=== PATIENT | female | born 1935 | race Caucasian/White ===

== ENCOUNTER 2019-10-30 13:56 | Observation (INO) | payer MEDICARE ==
--- OUTSIDE RECORDS SUMMARY | 2019-10-30 14:14 | XMS REPORT | Summary of Care ---
:1935 Author Organization [facility] Address [address] [place] [address] Care Team Providers Name Role Phone Ayesha Barros MD Primary Care Provider Reason for Visit Reason Comments New Patient Encounter Details Date Type Department Care Team Description 09/29/2019 Office Visit [facility] Kathy Ramirez, PAD (peripheral [facility] MD FRENCH disease) (Primary Dx) Department of Surgery, [address] [place] [address] Division of Vascular Room [address] [facility] and [place], [place] Endovascular Services [id number] [facility] [phone] [place] [address] (Fax) [phone] Allergies Active Allergy Reactions Severity Noted Date Comments Erythromycin 09/20/2019 Penicillins 09/20/2019 documented as of this encounter (statuses as of 09/29/2019) Medications Medication Sig Dispensed Refills Start Date End Date Status Calcium Carbonate-Vitamin D Take by mouth 0 09/06/2007 Active 600-200 MG-UNIT Oral Tablet (CALCIUM 600+D) Vitamin D 2000 UNIT Oral Take by mouth 0 07/29/2011 Active Capsule clonazePAM 0.5 MG Oral Take by mouth 0 09/30/2014 Active Tablet (KLONOPIN) Diclofenac Sodium 1 % 0 08/18/2019 Active Transdermal Gel (VOLTAREN) Fluticasone Propionate 50 0 07/30/2017 Active MCG/ACT Nasal Suspension (FLONASE) Gabapentin 100 MG Oral Take by mouth 0 11/02/2017 Active Capsule (NEURONTIN) hydroCHLOROthiazide 25 MG Take by mouth 0 08/18/2019 Active Oral Tablet (HYDRODIURIL) Levothyroxine Sodium 75 MCG Take by mouth 0 04/18/2018 Active Oral Tablet (SYNTHROID, LEVOTHROID) Magnesium Oxide 250 MG Oral Take by mouth 0 03/04/2016 Active Tablet PARoxetine HCl ER 37.5 MG Take by mouth 0 07/06/2016 Active Oral Tablet Extended Release 24 Hour (PAXIL-CR) raNITIdine HCl 150 MG Oral 0 09/18/2013 Active Tablet (ZANTAC) Simvastatin 40 MG Oral Take by mouth 0 12/04/2014 Active Tablet (ZOCOR) Trospium Chloride 20 MG Take by mouth 0 Active Oral Tablet (SANCTURA) ASPIRIN 81 PO Take by mouth 0 12/20/2012 Active Aspirin 325 MG Oral Tablet Take 325 mg 0 Active by mouth daily documented as of this encounter (statuses as of 09/29/2019) Active Problems No known active problemsdocumented as of this encounter (statuses as of 2018) Social History Tobacco Use Types Packs/Day Years Used Date Never Assessed 0 Sex Assigned at Date Recorded Not on file Job Start Date Occupation Industry Not on file Not on file Not on file Travel History Travel Start Travel End No recent travel history available. documented as of this encounter Last Filed Vital Signs Vital Sign Reading Time Taken Comments Blood Pressure 150/78 09/29/2019 2:37 PM EST Pulse 92 09/29/2019 2:37 PM EST Temperature 36 09/29/2019 2:37 PM EST C (96.8 F) Respiratory Rate 18 09/29/2019 2:37 PM EST Oxygen Saturation 92% 09/29/2019 2:37 PM EST Inhaled Oxygen Concentration - - Weight 61.7 kg (136 lb) 09/29/2019 2:37 PM EST Height 160 cm (5' 3") 09/29/2019 2:37 PM EST Body Mass Index 24.09 09/29/2019 2:37 PM EST documented in this encounter Progress Notes Kathy Ramirez MD - 09/29/2019 2:15 PM EST Subjective: Patient ID: Neisha Molina is a 83 y.o. female with past medical history of Anxiety, Depression, GERD (gastroesophageal reflux disease), Localized edema, Osteoporosis, Hypercholesterolemia, HTN, PVD (peripheral vascular disease) C/o knee pain, trouble walking, using a cane. Pain in thighs too. Taking Tylenol. Her knees bother her and her ankles are swollen over lower leg and foot. She was told years ago thatshe has PAD and should walk. 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 In the AM, when she wakes up, her left heel feels numb. After she is up and moving around, it feelsbetter. She is unsteady and fell recently. She said when she gets up to walk, it is hard to get started and then gets better as she moves. She does not have rest pain. She does not claudicate because she doesn't walk much. ROS: fatigue, wears glasses, AYALA, anxiety,muscle pains, pain with walking, difficulty walking. Neversmoker. Chief Complaint: HPI Neisha has a past medical history of Anxiety, Depression, GERD ( gastroesophageal reflux disease), Localized edema, Osteoporosis, PVD ( peripheral vascular disease), and Thyroid disease. Neisha does not have a problem list on file. Neisha has a past surgical history that includes Colonoscopy. Her family history is not on file. Neisha has no history on file for tobacco, alcohol, and drug. Neisha has a current medication list which includes the following prescription(s) : aspirin, clonazepam, diclofenac sodium, fluticasone, gabapentin, hydrochlorothiazide, levothyroxine, paroxetine, ranitidine, simvastatin, vitamin d, aspirin, calcium carbonate-vitamin d, magnesium oxide, and trospium. Current Outpatient Medications on File Prior to Visit Medication Sig Dispense Refill Aspirin 325 MG Oral Tablet Take 325 mg by mouth daily clonazePAM 0.5 MG Oral Tablet (KLONOPIN) Take by mouth Diclofenac Sodium 1 % Transdermal Gel (VOLTAREN) Fluticasone Propionate 50 MCG/ACT Nasal Suspension (FLONASE) Gabapentin 100 MG Oral Capsule (NEURONTIN) Take by mouth hydroCHLOROthiazide 25 MG Oral Tablet (HYDRODIURIL) Take by mouth Levothyroxine Sodium 75 MCG Oral Tablet (SYNTHROID, LEVOTHROID) Take by mouth PARoxetine HCl ER 37.5 MG Oral Tablet Extended Release 24 Hour (PAXIL-CR ) Take by mouth raNITIdine HCl 150 MG Oral Tablet (ZANTAC) Simvastatin 40 MG Oral Tablet (ZOCOR) Take by mouth Vitamin D 2000 UNIT Oral Capsule Take by mouth ASPIRIN 81 PO Take by mouth Calcium Carbonate-Vitamin D 600-200 MG-UNIT Oral Tablet (CALCIUM 600+D) Take by mouth Magnesium Oxide 250 MG Oral Tablet Take by mouth Trospium Chloride 20 MG Oral Tablet (SANCTURA) Take by mouth No current facility-administered medications on file prior to visit. Neisha is allergic to erythromycin and penicillins. Review of Systems All other systems reviewed and are negative. Objective: Physical Exam Constitutional: She is oriented to person, place, and time. She appears well- developed and well-nourished. HENT: Head: Normocephalic and atraumatic. Eyes: Pupils are equal, round, and reactive to light. Neck: Normal range of motion. Neck supple. Cardiovascular: Normal rate. Femoral 2+ bilaterally No pulses distally DP, PT, peroneal on right monophasic PT biphasic, DP, peroneal monophasic Pulmonary/Chest: Effort normal. Abdominal: Soft. Musculoskeletal: Normal range of motion. General: Edema present. Neurological: She is alert and oriented to person, place, and time. Skin: Skin is warm and dry. Psychiatric: She has a normal mood and affect. Her behavior is normal. Judgment and thought content normal. Nursing note and vitals reviewed. Lab Review: 09/13/19 LUCIO [facility]: LUCIO Right 0.57 and Left 0.54 TBI Right 0.15; Left 0.27 Assessment: 1. PAD (peripheral artery disease) Plan: Her symptoms and limitations are more consistent with arthritis. She has Moderate to severe PAD Right > Left so her options are limited with respect to compression. She needs to elevtre her legs more and increase her activity. She had Physical Therapy and would benefit from more Physical Therapy. I can obtain repeat her LUCIO/ TBI in 6 months and see her back after that. Total time spent during this encounter including review of record and available studies, obtaining history and performing the physical exam with recommendations was 45 minutes. documented in this encounter Plan of Treatment Not on filedocumented as of this encounter Results Not on filedocumented in this encounter Visit Diagnoses Diagnosis PAD (peripheral artery disease) - Primary Peripheral vascular disease, unspecified documented in this encounter
--- OUTSIDE RECORDS SUMMARY | 2019-10-30 14:14 | XMS REPORT | Continuity of Care Document ---
:1935 External Reference #:[id number] Author Name JUDIE Paez Address [address] [place] [address] Care Team Providers Name Role Phone Ayesha Barros M.D. - Internal Care Team Information [facility] Problems Active Problems Provider Date Depressive disorder Anisha Nuno M.D. Onset: 05/26/2013 Peripheral vascular disease Ayesha Barros M.D. Onset: 12/20/2012 Peptic reflux disease Onset: 10/18/2006 Pure hypercholesterolemia Onset: 10/18/2006 Generalized anxiety disorder Ayesha Barros M.D. Onset: 10/18/2006 Hypothyroidism Onset: 10/18/2006 Allergic rhinitis due to pollen Onset: 10/18/2006 Urge incontinence of urine Francisco Clifton MD Onset: 04/12/2018 Atrophic vaginitis Francisco Clifton MD Onset: 04/12/2018 Nocturia Francisco Clifton MD Onset: 04/12/2018 Neurogenic bladder Francisco Clifton MD Onset: 04/12/2018 Bladder muscle dysfunction - overactive Francisco Clifton MD Onset: 2017 Nocturnal enuresis JUDIE Lees Onset: 11/22/2017 Mixed urinary incontinence JUDIE Lees Onset: 11/22/2017 Increased frequency of urination JUDIE Lees Onset: 11/22/2017 Social History Type Date Description Comments Sex Unknown Tobacco Use Reviewed: 03/04/18 Never Smoked Cigarettes Smoking Status Reviewed: 08/15/19 Never Smoked Cigarettes ETOH Use Rare Alcohol Use Allergies, Adverse Reactions, Alerts Active Allergies Reaction Severity Comments Date Erythromycin unknown reaction 03/03/2005 Penicillin unknown reaction 04/05/2018 Toviaz Urticaria, itching and hives 04/26/2018 Medications Active Medications SIG Qnty Indications Ordering Date Provider Gabapentin take 1 capsule by 90caps F41.1 Fiorella, 11/02/20 100mg Capsules mouth tid for Janay Hodge 17 anxiety Fluticasone Propionate 2 sprays in each 16units R09.82 Fiorella, 07/30/20 nostril daily Janay Hodge 17 50mcg/Act Suspension Hydrochlorothiazide 1 by mouth every 30tabs R60.0 Fiorella, 06/25/20 12.5mg other day for foot Janay Hodge 17 Tablets swelling Paroxetine HCL ER 1 by mouth every 30tabs F41.1 Fiorella, 07/06/20 37.5mg night at bedtime Janay Hodge 16 Tablets ER 24HR Simvastatin take 1 tablet by 30tabs E78.2 Fiorella, 12/04/19 40mg Tablets mouth at bedtime Janay Hodge 15 Clonazepam 1/2 to 1 tab by 60tabs F41.1 Fiorella, 09/30/20 0.5mg Tablets mouth twice a day as Janay Hodge 14 needed Cyanocobalamin inject 1ml 25units D51.9 Entiat, 07/27/20 1000mcg/ML intramuscularly Maryanne Adan Solution every month N.P. Levothyroxine Sodium take 1 tablet by 30tabs E03.9 Fiorella, 12/26/19 75mcg mouth every day Janay Hodge 14 Tablets Ranitidine HCL Take 1 Tablet By 60tabs K21.0 Fiorella, 09/18/20 150mg Tablets Mouth Two Times Janay Hodge 13 Daily Aspirin 1 po qd 780.4 Fiorella, 12/20/[address] Ayesha M.D. 13 Vitamin D 1 po qd E55.9 Fiorella, 07/29/20 2000Unit Tablets Janay Hodge 11 Calcium-Vitamin D 1 PO qd M85.9 Fiorella, 09/06/20 Janay Hodge 07 [id number] Tablets History Medications Doxycycline Hyclate 1 by mouth twice a 5caps Francisco Clifton 2018 - day x 3 days. 08/14/2019 100mg Capsules Next dose tonight or tomorrow Am Medications Administered in Office Medication SIG Qnty Indications Ordering Provider Date Botox 100 Units Francisco Clifton MD 07/27/2019 Injection Immunizations Description No Information Available Vital Signs Date Vital Result Comment 09/26/2019 2:16pm Height 64 inches 5'4" Weight 134.00 lb Weight 60.782 kg BMI (Body Mass Index) 23.0 kg/m2 BP Systolic 133 mmHg BP Diastolic 83 mmHg Heart Rate 78 /min Post Void Residual ml 43 Bladder Scanner 09/26/2019 2:12pm Height 64 inches 5'4" Weight 134.00 lb Weight 60.782 kg BMI (Body Mass Index) 23.0 kg/m2 Results Test Acquired Date Facility Test Result H/L Range Note 230 Ua Routine 08/15/2019 [facility]a Glucose Negative REF TO DR ADDRESS ON ORDER FOR (315)- - Ua Protein Negative Ua Nitrite Negative Ua Leuko Trace Ua Blood Negative Ua Color Not Entered Ua Ketones Negative Ua Clarity Not Entered Ua Specific [place] 1.015 1.003-1.030 Ua PH 6.5 5.0-7.5 Ua Bilirubin Negative Ua Urobilinogen 0.2 E.U./dL 0.0-1.0 230 Ua [facility]2019 [facility] Glucose Negative REF TO DR ADDRESS ON ORDER FOR (315)- - Ua Protein Negative Ua Nitrite Negative Ua Leuko Negative Ua Blood Negative Ua Color Not Entered Ua Ketones Negative Ua Clarity Not Entered Ua Specific [place] >=1.030 1.003-1.030 Ua PH 7.0 5.0-7.5 Ua Bilirubin Negative Ua Urobilinogen 0.2 E.U./dL 0.0-1.0 230 Ua [facility]a Glucose Negative REF TO DR ADDRESS ON ORDER FOR (315)- - Ua Protein Negative Ua Nitrite Negative Ua Leuko Negative Ua Blood Negative Ua Color Not Entered Ua Ketones Negative Ua Clarity Not Entered Ua Specific [place] 1.020 1.003-1.030 Ua PH 8.0 5.0-7.5 Ua Bilirubin Negative Ua Urobilinogen 0.2 E.U./dL 0.0-1.0 Procedures Date Code Description Status 09/26/2019 86340 Bladder Scan, Post Voiding Residual Urine Completed 08/15/2019 69257 Bladder Scan, Post Voiding Residual Urine Completed 08/15/2019 [id number] Colonoscopy Completed 07/27/2019 11330 Cystourethroscopy,/W Injects For Chemodenervation Of Completed The Bladder 07/07/2019 94701 Bladder Scan, Post Voiding Residual Urine Completed Medical Devices Description No Information Available Encounters Type Date Location Provider Dx Diagnosis Office Visit 09/26/2019 [facility]/ [facility] 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 Will continue with plan for Botox in December as prior.R35.1 NocturiaComments:Greatly improved on Botox. Still improved without trospium. Please see below.R33.8 Other retention of urineComments:Normal bladder volume by bladder scanner today. Improved from prior on trospium. Continue without trospium at present. Keep current appointment. All questions addressed to patient's satisfaction.AllFollow up: Keep current appointment. Dr. Murray is the supervising physician. Functional Status Description No Information Available Mental Status Description No Information Available Referrals Refer to Reason for Referral Status Appt Date Francisco Clifton M.D. Botox Created [facility] [address] [place] [phone]
--- NOTE | 2019-10-30 14:26 | ED ---
Lower Extremity - HPI Summary HPI Summary: This patient is a 83 year old F brought to [facility] by EMS accompanied by daughter with a chief complaint of inability to walk due to leg pain since this morning 10/30/19. Symptoms aggravated by nothing. Symptoms alleviated by nothing. Daughter reports increasing pain in legs until this morning when she could not walk. Daughter reports pt was supposed to see Dr. Daly for a potential knee replacement in 2 days but now both legs are in a lot of pain including pain from left thigh down to ankle. Daughter also reports slight confusion for 2-3 days reported by pt but in actuality for 2-3 years per daughter. Daughter reports pt fell backward 4 days ago but pt denies LOC. Daughter reports pt has had difficulty walking for past 2 months. Denies sob, trouble breathing, cough, denies weight gain but daughter reports a weight gain, fever, chills, erythema of eyes, sore throat, CP, abdominal pain, N/V, dysuria, hematuria, myalgia, edema, rash. Pt reports current dizziness. Fhx strokes. Daughter reports past dx of PAD and vascular doctor, Dr. Betts, in [place] who recommended exercise but pt does not wish to exercise. Pt reports a dog hit her left leg years ago. - History of Current Complaint Stated Complaint: LEG PAIN Time Seen by Provider: 10/30/19 14:08 Hx Obtained From: Patient, Family/Bearingizer - daughter Mechanism Of Injury: Fall From A Standing Position Onset/Duration: Still Present Timing: Constant Associated Signs And Symptoms: Positive: Dizziness, Other - confusion, difficulty walking; Denies sob, trouble breathing, cough, denies weight gain but daughter reports a weight gain, fever, chills, erythema of eyes, sore throat , CP, abdominal pain, N/V, dysuria, hematuria, myalgia, edema, rash.. Negative : Fever, Syncope Aggravating Factor(s): Nothing Alleviating Factor(s): Nothing - Allergies/Home Medications Allergies/Adverse Reactions: Allergies Allergy/AdvReac Type Severity Reaction Status Date / Time Penicillins Allergy Rash Verified 10/30/19 14:50 Home Medications: Home Medications Diclofenac 1% GEL (NF) [Voltaren 1% GEL (NF)] 1 applic TOPICAL QID 10/30/19 [ History Confirmed 10/30/19] Gabapentin CAP(*) [Neurontin 100 mg CAP(*)] 100 mg PO TID 10/30/19 [History Confirmed 10/30/19] Hydrochlorothiazide TAB* [Hydrodiuril TAB*] 12.5 mg PO DAILY 10/30/19 [History Confirmed 10/30/19] Hydrochlorothiazide TAB* [Hydrodiuril TAB*] 25 mg PO DAILY 10/30/19 [History Confirmed 10/30/19] Paroxetine CR (NF) [Paxil CR (NF)] 37.5 mg PO BEDTIME 10/30/19 [History Confirmed 10/30/19] Vit E Acet/Gly/Dimeth/Water [Cetaphil Moisturizing] 1 applic TOPICAL TID PRN [History Confirmed 10/30/19] PMH/Surg Hx/FS Hx/Imm Hx Endocrine/Hematology History: Reports: Hx Anticoagulant Therapy, Hx Thyroid Disease, Hx Anemia Denies: Hx Diabetes Cardiovascular History: Reports: Hx Angina, Hx Hypercholesterolemia, Hx Hypertension, Hx Peripheral Vascular Disease Denies: Hx Pacemaker/ICD Respiratory History: Reports: Hx Asthma GI History: Reports: Hx Gastroesophageal Reflux Disease, Other GI Disorders - constipation History: Denies: Hx Renal Disease Musculoskeletal History: Reports: Hx Arthritis - hips, Hx Back Problems Sensory History: Reports: Hx Cataracts - removal and lens implants placed Denies: Hx Hearing Aid Opthamlomology History: Reports: Hx Cataracts - removal and lens implants placed Psychiatric History: Reports: Hx Anxiety Denies: Hx Panic Disorder - Surgical History Surgery Procedure, Year, and Place: Cataract surgery with lens implants. D+C after miscarriage at age 34 Hx Anesthesia Reactions: No Infectious Disease History: Reports: Hx Tuberculosis - At age 25, neg cxr 09/19 Denies: Traveled Outside the [place] in Last 30 Days - Family History Known Family History: Positive: Hypertension, Other - strokes - Social History Alcohol Use: Rare Hx Substance Use: No Substance Use Type: Reports: None Hx Tobacco Use: No Smoking Status (MU): Never Smoked Tobacco Review of Systems Positive: Other - denies weight gain thought daughter says there was weight gain. Negative: Fever, Chills Negative: Erythema Negative: Sore Throat Negative: Chest Pain Positive: Other - denies trouble breathing. Negative: Shortness Of Breath, Cough Negative: Abdominal Pain, Vomiting, Nausea Negative: dysuria, hematuria Positive: Other - inability to walk, bilateral leg pain. Negative: Myalgia, Edema Negative: Rash Neurological: Other - dizziness, confusion All Other Systems Reviewed And Are Negative: Yes Physical Exam - Summary Physical Exam Summary: Constitutional: Well-developed, Well-nourished, Alert. (-) Distressed Skin: Warm, Dry HENT: Normocephalic; Atraumatic Eyes: Conjunctiva normal Neck: Musculoskeletal ROM normal neck. (-) JVD, (-) Stridor, (-) Tracheal deviation Cardio: Rhythm regular, rate normal, Heart sounds normal; Intact distal pulses; The pedal pulses are 2+ and symmetric. Radial pulses are 2+ and symmetric. (-) Murmur Pulmonary/Chest wall: Effort normal. (-) Respiratory distress, (-) Wheezes, (-) Rales Abd: Soft, (-) tenderness, (-) Distension, (-) Guarding, (-) Rebound Musculoskeletal:trace edema bilateral lower extremity, pedal pulses not palpable , feet somewhat cold, capillary refill is less than 2 seconds, redness overlying left ankle extending fci up the calf Lymph: (-) Cervical adenopathy Neuro: Alert, Oriented x3 Psych: Mood and affect Normal Triage Information Reviewed: Yes Vital Signs Reviewed: Yes Procedures - Sedation Patient Received Moderate/Deep Sedation with Procedure: No Diagnostics - Laboratory Result Diagrams: 10/30/19 14:55 10/30/19 14:55 Lab Statement: Any lab studies that have been ordered have been reviewed, and results considered in the medical decision making process. - Radiology Chest X-Ray Radiology Interpretation Completed By: Radiologist Summary of Radiographic Findings: Per radiologist,. 1. Cephalization of the pulmonary vascular markings (sometimes seen with early mild. pulmonary edema). 2. No focal airspace opacification. ED physician has reviewed this imaging report. - CT Brain CT CT Interpretation Completed By: Radiologist Summary of CT Findings: Per radiologist,. 1. No acute intracranial abnormality. 2. Mild chronic small vessel ischemic disease is likely. 3. Mild cerebral volume loss. ED physician has reviewed this imaging report. - Ultrasound Venous Doppler Study Ultrasound Interpretation Completed By: Radiologist Summary of Ultrasound Findings: Per radiologist,. 1. NO LEFT LOWER EXTREMITY DEEP VEIN THROMBOSIS. 2. LOPEZ'S CYST. ED physician has reviewed this imaging report. - EKG 1436 Cardiac Rate: NL - 72 BPM Summary of EKG Findings: EKG taken at 1436 reveals sinus rhythm at 72 BPM, t- wave flattening V6, non-STEMI. Re-Evaluation - Re-Evaluation First Eval Re-Evaluation Time: 17:50 Comment: Family says that today cannot walk and it is not painful. Lower Extremity Course/Dx - Course Assessment/Plan: This patient is a 83 year old F brought to [facility] by EMS accompanied by daughter with a chief complaint of inability to walk due to leg pain since this morning 10/30/19. Daughter reports increasing pain in legs until this morning when she could not walk. Daughter also reports slight confusion for 2-3 days reported by pt but in actuality for 2-3 years per daughter. Daughter reports pt fell backward 4 days ago but pt denies LOC. Daughter reports pt has had difficulty walking for past 2 months. Denies sob, trouble breathing, cough, denies weight gain but daughter reports a weight gain , fever, chills, erythema of eyes, sore throat, CP, abdominal pain, N/V, dysuria , hematuria, myalgia, edema, rash. Pt reports current dizziness. Physical Exam Findings reveal no abnormalities except for trace edema bilateral lower extremity, pedal pulses not palpable, feet somewhat cold, capillary refill is less than 2 seconds, redness overlying left ankle extending fci up the calf, . EKG taken at 1436 reveals sinus rhythm at 72 BPM, t-wave flattening V6, non- STEMI. CXR reveals 1. Cephalization of the pulmonary vascular markings ( sometimes seen with early mild. pulmonary edema). 2. No focal airspace opacification. Brain CT reveals 1. No acute intracranial abnormality. 2. Mild chronic small vessel ischemic disease is likely. 3. Mild cerebral volume loss. Venous Doppler Study reveals 1. NO LEFT LOWER EXTREMITY DEEP VEIN THROMBOSIS. 2. LOPEZ'S CYST. ED physician has reviewed this radiology report and agrees. Test results with no significant abnormalities expect for Potassium 3.2 L, BUN/Creatinine Ratio 23.9 H, Glucose 124 H. We discussed patient care with Dr. Norris who accepts pt for admission. Patient will be admitted with dx failure to thrive, weakness, and uncontrolled hypertension. The patient is agreeable with this plan. - Diagnoses Provider Diagnoses: Failure to thrive, Weakness, Uncontrolled hypertension - Physician Notifications Discussed Care Of Patient With: Margoth Norris - hospitalist Time Discussed With Above Provider: 17:56 Instructed by Provider To: Admit As Inpatient Discharge ED - Sign-Out/Discharge Documenting (check all that apply): Patient Departure - admit - Discharge Plan Disposition: ADMITTED TO [facility] Referrals: Ayesha Murphy MD [Primary Care Provider] - - Attestation Statements Document Initiated by Scribe: Yes Documenting Scribe: Ingrid Kendrick Provider For Whom Scribe is Documenting (Include Credential): Dr. Olman Duggan MD Scribe Attestation: Ingrid De La Cruz, scribed for Dr. Olman Duggan MD on 10/30/19 at 1758. Status of Scribe Document: Ready
[2019-10-30 15:20] LABS: ABS Basophils 0.1 10^3/ul (0-0.2); ABS Eosinophils 0.3 10^3/ul (0-0.6); ABS Lymphocytes 1.3 10^3/ul (1.0-4.8); ABS Monocytes 0.4 10^3/ul (0-0.8); ABS Neutrophils 3.9 10^3/ul (1.5-7.7); Eosinophil % 5.1 %; Hematocrit 40 % (35-47); Hemoglobin 13.4 g/dL (12.0-16.0); Lymphocyte % 21.2 %; Mean Corpuscular HGB Conc 34 g/dL (31-36); Mean Corpuscular Hemoglobin 30 pg (27-31); Mean Corpuscular Volume 89 fL (80-97); Nucleated Red Blood Cells % 0.1; Platelet Count 259 10^3/uL (150-450); Red Blood Count 4.46 10^6 /uL (3.70-4.87); Red Cell Distribution Width 14 % (10-15); White Blood Count 5.9 10^3/uL (3.5-10.8)
[2019-10-30 15:39] LABS: Activated Partial Thrombo Time 34.7 seconds (26.0-38.0); INR 0.95 (0.82-1.09)
[2019-10-30 15:54] LABS: Albumin 3.5 g/dL (3.2-5.2); Albumin/Globulin Ratio 1.1 (1-3); BUN/Creatinine Ratio 23.9 (8-20); Calcium 9.3 mg/dL (8.6-10.3); EGFR African American 94.9 (>60); EGFR Non-African American 78.4 (>60); Globulin 3.2 g/dL (2-4); Potassium 3.2 mmol/L (3.5-5.0); Total Bilirubin 0.4 mg/dL (0.2-1.0); Total Protein 6.7 g/dL (6.4-8.9)
[2019-10-30] MEDS ORDERED: NS 0.9% 1000 ML** 1,000 ML IV ONE (17:59)
[2019-10-30 18:22] LABS: Urine Appearance Clear; Urine Bilirubin Negative (Negative); Urine Blood Negative (Negative); Urine Color Straw; Urine Glucose Negative (Negative); Urine Ketones Negative (Negative); Urine Nitrite Negative (Negative); Urine Protein Negative (Negative); Urine Specific Gravity 1.009 (1.010-1.030); Urine Urobilinogen Negative (Negative)
[2019-10-30] MEDS ORDERED: Ketorolac INJ* 15 MG/ML 1 ML VIAL IV PUSH PRN (19:33)
[2019-10-30] MEDS ORDERED: Potassium Chlor TAB* 20 MEQ TAB.ER PO ONE (19:45)
[2019-10-30] MEDS ORDERED: traMADol TAB* 50 MG PO PRN (19:46)
[2019-10-30] MEDS ORDERED: Melatonin 3 MG TAB PO PRN (20:02)
[2019-10-30] MEDS ORDERED: Acetaminophen TAB* 325 MG PO PRN (20:02)
[2019-10-30] MEDS ORDERED: Ondansetron INJ* 2 MG/ML VIAL IV PRN (20:02)
[2019-10-30] MEDS ORDERED: PAROXETINE 12.5 MG PO SCH (21:00)
[2019-10-30] MEDS ORDERED: Cholecalciferol TAB* 1000 UNITS PO SCH (21:00)
[2019-10-30] MEDS ORDERED: Atorvastatin* 20 MG TAB PO SCH (21:00)
[2019-10-30] MEDS: Gabapentin CAP(*) 100 MG PO SCH (22:57)
[2019-10-30] MEDS: Docusate CAP* 100 MG PO SCH (22:58)
[2019-10-30] MEDS ORDERED: Enoxaparin(*) 40 MG/0.4 ML SYR SUBCUT SCH (23:00)
--- NOTE | 2019-10-30 23:12 | HP ---
AMENDED REPORT NOW INCLUDES DESIGNATED COSIGNER CC: Dr. Barros * HISTORY AND PHYSICAL: DATE OF ADMISSION: 10/30/19 PRIMARY CARE PHYSICIAN: Dr. Barros. PROVIDER: Chelly Steiner NP ATTENDING PHYSICIAN: Dr. Norris.* (DICTATED BY CHELLY STEINER NP) CHIEF COMPLAINT: Left leg pain. HISTORY OF PRESENT ILLNESS: This is an 83-year-old female with past medical history significant for cognitive impairment, thyroid disease, and arthritis, who arrived to the emergency room on 10/30/19 for reports of left knee pain and inability to walk. She stated that she has been having ongoing pain in bilateral knees for 1 year. She had an appointment scheduled with Dr. Daly in 2 days to discuss the possibility of bilateral knee replacements due to pain having progressed. However, the pain became much worse this morning, which contributed to her inability to walk. She reports the pain has been behind her left knee and it is sharp and burning and achy, stating that it is constant. It is worse with movement, better with rest. In the emergency room, labs were drawn. EKG done. Chest x-ray, brain CT, and venous Doppler performed, which showed that she had no DVT, but a Denton cyst behind the left knee measuring 3.6 x 1.2 x 2.5 cm. The patient would grimace while moving her leg in the bed. She stated that her pain was 6/10 to behind the left knee. The concern is that the patient lives by herself, though her daughter lives behind her and comes over frequently to help, but neither of them were able to manage her inability to walk at home. PAST MEDICAL HISTORY: Significant for cognitive impairment, thyroid disease, vitamin B12, anemia, angina, anxiety, tuberculosis at the age of 25, arthritis, back problems, hypercholesterolemia, hypertension, GERD, peripheral arterial disease, constipation, asthma, and cataracts. PAST SURGICAL HISTORY: Bilateral cataract repair and D and C. HOME MEDICATIONS: 1. Hydrochlorothiazide 25 mg p.o. daily. 2. Simvastatin 40 mg p.o. at bedtime. 3. Paroxetine 37.5 mg p.o. at bedtime. 4. Levothyroxine 75 mcg p.o. daily. 5. Gabapentin 100 mg p.o. t.i.d. 6. Diclofenac 1% gel 1 application topically 4 times a day. 7. Cholecalciferol 3000 units p.o. at bedtime. 8. Cetaphil moisturizing cream topically t.i.d. p.r.n. ALLERGIES: PENICILLIN. FAMILY HISTORY: Significant for CVA and hypertension. SOCIAL HISTORY: Denies any ETOH, tobacco, or recreational substance use. She is retired. As stated, lives at home alone, though her daughter lives behind her and helps frequently. REVIEW OF SYSTEMS: An 11-point system review was performed, which was positive for intermittent numbness and tingling in her bilateral great toes and positive for left knee and heel pain and left leg weakness. Negative for chest pain, shortness of breath, abdominal pain, nausea, vomiting, issues moving her bowel or blader. PHYSICAL EXAMINATION GENERAL: This is a well-developed woman seeing resting in the bed, in no acute distress. VITAL SIGNS: Temperature 98.2, 87 pulse, 15 respirations, 99% oxygen on room air, 126/77 blood pressure. HEENT: Eyes: Conjunctivae pink and moist. PERRLA. EOMs intact. ENT: Mucous membranes are moist. Oropharynx clear. NECK: Supple. RESPIRATORY: Lung sounds clear throughout bilaterally on room air. No accessory muscle use noted. CARDIAC: S1, S2. Heart rate regular. No murmurs, gallops, or rubs appreciated. ABDOMEN: Soft, nontender, nondistended with positive bowel sounds x4. MUSCULOSKELETAL: No clubbing or cyanosis of the digits. Tenderness behind the left knee with trace swelling. NEUROLOGICAL: Moves all extremities. Sensation intact to light touch. No focal deficits appreciated. PSYCH: Alert and oriented x3. Thought content organized. SKIN: Intact. Left heel deeply red, nonblanching and boggy. PERTINENT LAB DATA: Potassium 3.2, magnesium 2.0, BUN creatinine ratio 23.9, glucose 124. DIAGNOSTIC STUDIES: Brain CT showed no acute intracranial abnormality, mild chronic small vessel ischemic disease likely and mild cerebral volume loss. Venous Doppler study was negative for DVT, showed Denton cyst measuring 3.6 x 1.2 x 2.5 cm. EKG showed sinus rhythm. Chest x-ray showed cephalization of the pulmonary vascular markings (sometimes seen with early mild pulmonary edema) and no focal airspace opacification. ASSESSMENT AND PLAN: My impression is that this is an 83-year-old female with past medical history significant for cognitive impairment, thyroid disease, vitamin B12, anemia, who was admitted on 10/30/19 for left knee pain secondary to Denton cyst and inability to walk. 1. Left knee Denton cyst. Dr. Mcnally had been contacted with regards to possibility of steroid injection in the left knee for pain control stated that because patient has an established appointment with Dr. Daly, to see if we are able to mobilize the patient using a walker and other means of pain control such as NSAIDs in order for her to be able to make to that appointment. With the understanding that the patient is normally on aspirin, kidney functions were okay, so, tentatively ordered Toradol. We will recheck BMP tomorrow morning. We will also have tramadol available for her pain control. Physical Therapy ordered. 2. Hypokalemia. Level upon admission was 3.2. Magnesium was 2.0. Ordered 40 mEq of p.o. potassium. We will recheck in the a.m. 3. Depression and anxiety. Under control at this time. Continue paroxetine and gabapentin. Daughter and patient were concerned about her ability to sleep in a new environment tonight. Ordered melatonin. 4. Hypothyroidism. Continue levothyroxine. 5. Hypertension. Upon admission, the blood pressures were elevated 180/73 as high as 209/81. It is possible that this is a response to pain as blood pressures have now come down to 126/77. We will continue hydrochlorothiazide; however, we will consider the need to possibly titrate medications based off of her blood pressure trends over this admission. 6. Hyperlipidemia. Continue the atorvastatin and aspirin. 7. Gastroesophageal reflux disease. The patient had been taking ranitidine prior to it being recalled, has been having weekly bouts of indigestion. Ordered famotidine. 8. DVT prophylaxis. Ordered Lovenox. 9. Code status is full code. TIME SPENT: Time spent on the patient is about 60 minutes with half of this spent [id number]. Case was reviewed by my attending and they agreed with the plan of care. CHELLY STEINER, MAINTENANCE MGR [id number]/[facility] #: [id number] SAMUEL
[2019-10-31] MEDS ORDERED: Levothyroxine TAB* 75 MCG TAB PO SCH (06:00)
[2019-10-31 06:27] LABS: ABS Basophils 0.1 10^3/ul (0-0.2); ABS Eosinophils 0.4 10^3/ul (0-0.6); ABS Lymphocytes 2.4 10^3/ul (1.0-4.8); ABS Monocytes 0.6 10^3/ul (0-0.8); ABS Neutrophils 3.7 10^3/ul (1.5-7.7); Eosinophil % 5.3 %; Hematocrit 34 % (35-47); Hemoglobin 11.2 g/dL (12.0-16.0); Mean Corpuscular HGB Conc 33 g/dL (31-36); Mean Corpuscular Hemoglobin 30 pg (27-31); Mean Corpuscular Volume 89 fL (80-97); Mean Platelet Volume 8.5 fL (7.4-10.4); Nucleated Red Blood Cells % 0.1; Platelet Count 214 10^3/uL (150-450); Red Blood Count 3.77 10^6 /uL (3.70-4.87); Red Cell Distribution Width 14 % (10-15); White Blood Count 7.1 10^3/uL (3.5-10.8)
[2019-10-31 07:01] LABS: BUN/Creatinine Ratio 22.9 (8-20); Calcium 8.7 mg/dL (8.6-10.3); EGFR African American 96.5 (>60); EGFR Non-African American 79.7 (>60); Potassium 3.7 mmol/L (3.5-5.0)
[2019-10-31] MEDS: Gabapentin CAP(*) 100 MG PO SCH ×2 (08:59→14:05)
[2019-10-31] MEDS: Docusate CAP* 100 MG PO SCH (08:59)
[2019-10-31] MEDS ORDERED: Hydrochlorothiazide TAB* 25 MG PO SCH (09:00)
[2019-10-31] MEDS ORDERED: Aspirin EC TAB* 325 MG PO SCH (09:00)
[2019-10-31] MEDS ORDERED: Aspirin EC TAB* 81 MG TAB.EC PO SCH (09:00)
[2019-10-31] MEDS ORDERED: Famotidine TAB* 20 MG PO SCH (09:00)
[2019-10-31 11:23] VITALS: BP 147/46
[2019-10-31] MEDS ORDERED: PAROXETINE 37.5 MG PO SCH (21:00)
--- NOTE | 2019-11-01 00:18 | DS ---
CC: Dr. Barros * DISCHARGE SUMMARY: DATE OF ADMISSION: 10/30/19 DATE OF DISCHARGE: 10/31/19 PROVIDER: Chelly Steiner NP. ATTENDING PHYSICIAN: Dr. Vaz.* (DICTATED BY CHELLY STEINER NP) PRIMARY CARE PHYSICIAN: Dr. Barros. PRIMARY DIAGNOSIS: Left knee Denton cyst. PROCEDURES: None. STUDIES: Brain CT scan showed no acute intracranial abnormalities, mild chronic small vessel ischemic disease likely and mild cerebral volume loss. Venous Doppler study showed no left lower extremity deep vein thrombosis. Noted a 3.6 x 1.2 x 2.5 cm fluid collection within the popliteal fossa, noted to be Denton's cyst. Chest x- ray showed cephalization of the pulmonary vascular markings, sometimes seen with early mild pulmonary edema and no focal airspace opacification. EKG showed sinus rhythm. PERTINENT LAB DATA: Hemoglobin 11.2, hematocrit 34, BUN and creatinine ratio 22.9, glucose 119. Urine was negative. HISTORY OF PRESENT ILLNESS/HOSPITAL COURSE: This is an 83-year-old female with a past medical history significant for cognitive impairment, thyroid disease, and arthritis, who was admitted on 10/30/19, for left knee pain and inability to walk. She had been having ongoing bilateral knee pain for a year, was scheduled to see Dr. Daly tomorrow in the office for talk of potential knee replacement, though woke up in the morning yesterday with sharp burning, achy knee pain and was unable to bear weight on it. Brain CT was performed, which was negative for any remarkable findings. Labs drawn in the emergency room revealed potassium level of 3.2, which was corrected with oral potassium. The level increased the next day to 3.7. During her admission, she received evaluation from physical therapy and pain was well controlled with Tylenol. She was able to get up today with assistance of a walker and was able to ambulate to the bathroom and back with minimal discomfort. The patient was deemed ready to be discharged home and to follow up with Dr. Daly at her pre- established appointment for cortisone injection. When I assessed her, she was sitting up in the chair in no discomfort, in good spirits and stated she felt much better than yesterday. REVIEW OF SYSTEMS: An 11-point system review was performed, which was positive for mild right knee pain with weightbearing, otherwise negative for chest pain, shortness of breath, abdominal pain, nausea, vomiting, or issues moving her bowel or bladder. PHYSICAL EXAMINATION: Vital Signs: Temperature 97.7, 65 pulse, 20 resps, 100% oxygen on room, 147/46 blood pressure. General: This is a well-developed older woman seen sitting up in the chair. No acute distress. Eyes: Conjunctivae pink and moist. PERRLA. EOMs intact. ENT: Mucous membranes moist. Oropharynx clear. Neck is supple. Cardiac: S1, S2 present. Heart rate regular. No murmurs, gallops, or rubs appreciated. Respiratory: Lung sounds clear throughout bilaterally on room air. No accessory muscle use noted. Abdomen is soft, nontender. Positive bowel sounds x4. Musculoskeletal : No clubbing or cyanosis of the digits. Mild edema to posterior left knee that was mildly tender to palpation. 2+ positive pedal pulses. Cap refill less than 3 seconds. Neurological: Sensation intact to light touch. No focal deficits was appreciated. Psych: Alert and oriented x3. Thought content organized. DISCHARGE PLAN: Activity is as tolerated while using a walker. Diet is regular. The patient is to return to the hospital should she become unable to walk again or her pain becomes more severe, or develops increasing numbness or tingling in her left lower extremity. PLAN FOR EACH CONDITION: 1. For Denton cyst to the left knee, to use a walker with ambulation. May use 975 of Tylenol 3 times a day. Prescribed for 10 tabs of tramadol. Did check her previous prescription histories on the prescription monitoring program with reference number of [id number] and noted previous prescriptions for clonazepam though no pain medication. She is to keep her appointment with Dr. Daly tomorrow and to discuss the possibility of getting a cortisone shot for pain control. Also with possibility of future knee replacement as there is arthritis in the joint. 2. Hypertension. The patient is to continue her hydrochlorothiazide 25 mg. blood control in the hospital has been slightly labile from the 120s up into as high as 160. Recommend that she follow up with her primary care physician within a week to continue monitoring of that. 3. Hyperlipidemia. Continue simvastatin. 4. Anxiety. Continue paroxetine and gabapentin. 5. Hypothyroidism. Continue levothyroxine. 6. GERD. Continue famotidine. 7. Risks for coronary artery disease. Continue aspirin at 81 mg, which I decreased from her original 325 mg that she was taking as there is no indication for that high of a dosage for prophylaxis. CONTINUED MEDICATIONS UPON DISCHARGE: 1. Acetaminophen 650 mg p.o. q.4 hours p.r.n. 2. Aspirin 81 mg p.o. q.day. 3. Vitamin D 3000 units p.o. q.bedtime. 4. Diclofenac 1% gel 1 application topically 4 times a day. 5. Famotidine 20 mg p.o. daily. 6. Gabapentin 100 mg p.o. t.i.d. 7. Hydrochlorothiazide 25 mg p.o. daily. 8. Levothyroxine 75 mcg p.o. daily. 9. Paroxetine 37.5 mg p.o. at bedtime. 10. Simvastatin 40 mg p.o. at bedtime. 11. Tramadol 25 mg p.o. q.6 hours p.r.n. for a total of 10 tabs. 12. Cetaphil moisturizing lotion 1 application topically t.i.d. CONDITION UPON DISCHARGE: Stable. DISPOSITION: To home. TIME SPENT: Time spent on the patient was about 40 minutes with half of that spent [id number]. CHELLY STEINER, FUNERAL DIRECTOR [id number]/[facility] [place] #: [id number] MTDD
== END 2019-10-31 16:00 | disposition home or self-care (01) ==
LOC: ED 13:56 → MED 20:02
PROVIDERS: ADMIT Nurse Practitioner Adult Health; ATTEND Internal Medicine
DX: M71.22 Synovial cyst of popliteal space [Baker], left knee (principal); R42 Dizziness and giddiness; R53.83 Other fatigue; I10 Essential (primary) hypertension; E78.5 Hyperlipidemia, unspecified; F41.9 Anxiety disorder, unspecified; K21.9 Gastro-esophageal reflux disease without esophagitis; E03.9 Hypothyroidism, unspecified; Z79.82 Long term (current) use of aspirin; Z79.899 Other long term (current) drug therapy; Z79.01 Long term (current) use of anticoagulants; R94.31 Abnormal electrocardiogram [ECG] [EKG]; M79.606 Pain in leg, unspecified; E78.00 Pure hypercholesterolemia, unspecified; R60.0 Localized edema
CPT/HCPCS: 36415; 70450; 71045; 80048; 80053; 81003; 83605; 83735; 83880; 84484; 85025; 85610; 85730; 87040; 93005; 96372; 99283; A9270-GY; G0378; G8978-GP-CJ; G8979-GP-CI; J1650

== ENCOUNTER 2019-12-03 15:40 | Emergency (ER) | payer MEDICARE ==
--- OUTSIDE RECORDS SUMMARY | 2019-12-03 15:48 | XMS REPORT | Continuity of Care Document ---
:1935 External Reference #:[id number] Author Name Ayesha Barros MD Address [address] [place] [address] Problems Active Problems Provider Date Peptic reflux disease Onset: 10/18/2006 Pure hypercholesterolemia Onset: 10/18/2006 Generalized anxiety disorder Ayesha Barros MD Onset: 10/18/2006 Hypothyroidism Onset: 10/18/2006 Allergic rhinitis due to pollen Onset: 10/18/2006 Peripheral vascular disease Ayesha Barros MD Onset: 12/20/2012 Note: lower extremity Depressive disorder Anisha Nuno MD Onset: 05/26/2013 Social History Type Date Description Comments Sex Unknown Tobacco Use Start: Unknown Never Smoked Cigarettes Tobacco Use Start: Unknown Patient has never smoked Smoking Status Reviewed: 11/24/19 Patient has never smoked Allergies, Adverse Reactions, Alerts Active Allergies Reaction Severity Comments Date PCN 03/03/2005 Erythromycin 03/03/2005 Medications Active Medications SIG Qnty Indications Ordering Date Provider Aspirin Ec 1 by mouth I73.89 [facility], 11/24/[address] every day Ayesha Michael MD Mirtazapine take 1 tablet 30tabs F32.9 Fiorella, 11/24/2019 7.5mg Tablets by mouth every Ayesha Michael MD night at bedtime Hydrochlorothiazide 1 by mouth 90tabs R60.0 Fiorella, 08/18/2019 25mg Tablets every day Ayesha Michael MD Diclofenac Sodium apply 1 gram 100gm M17.0 Fiorella, 08/18/2019 1% Gel per joint four Ayesha Michael MD times a day as needed for pain MDD 4g/d Levothyroxine Sodium 1 by mouth 90tabs E03.9 Fiorella, 04/18/2018 75mcg every day Ayesha Michael MD Tablets Gabapentin take 1 capsule 90caps F41.1 Fiorella, 11/02/2017 100mg Capsules by mouth three Ayesha Michael MD times a day as needed for anxiety Fluticasone Propionate 2 sprays in 16units R09.82 [facility], 07/30/2017 50mcg/Act each nostril Ayesha Michael MD Suspension daily Paroxetine HCL ER Take 1 Tablet 30tabs F41.1 [facility], 07/06/2016 37.5mg Tablets By Mouth Every Ayesha Michael MD ER 24HR Day AT Bedtime Magnesium Oxide 1 po qhs [place], 03/04/2016 250mg Tablets Ayesha Michael MD Simvastatin take 1 tablet 30tabs E78.2 [place], 12/04/2014 40mg Tablets by mouth at Ayesha Michael MD bedtime Clonazepam take 1/2 to 1 60tabs F41.1 Maria Victoria Tucker 09/30/2014 0.5mg Tablets tablet by MATIAS Gibson MS PATROL LADY mouth two times daily as needed maximum daily dose of 2 per day Ranitidine HCL Take 1 Tablet 60tabs K21.0 [place], 09/18/2013 150mg Tablets By Mouth One Ayesha Michael MD Time Daily Vitamin D 1 po qd E55.9 [place], 07/29/2011 2000Unit Capsules Ayesha Michael MD Calcium 600+D 1 PO qd M85.9 [place], 09/06/2007 Tablets Ayesha Michael MD Medications Administered in Office Medication SIG Qnty Indications Ordering Provider Date B-12 Injection Ayesha Barros MD 11/24/2019 Injection B-12 Injection Ayesha Barros MD 08/18/2019 Injection B-12 Injection Nurses Schedule Nydia 05/24/2019 Injection B-12 Injection Ayesha Barros MD 01/16/2019 Injection B-12 Injection Maria Victoria Tucker RN MS 11/03/2018 Injection PATROL LADY B-12 Injection Nurses Schedule Nydia 09/13/2018 Injection B-12 Injection Nurses Schedule Nydia 07/22/2018 Injection B-12 Injection Nurses Schedule Nydia 06/07/2018 Injection B-12 Injection Nurses Schedule Nydia 04/08/2018 Injection B-12 Injection Ayesha Barros MD 02/01/2018 Injection B-12 Injection Nurses Schedule Nydia 12/07/2017 Injection B-12 Injection Nurses Schedule Nydia 10/11/2017 Injection B-12 Injection Ayesha Barros MD 07/30/2017 Injection B-12 Injection Ayesha Barros MD 06/25/2017 Injection B-12 Injection Nurses Schedule Nydia 05/14/2017 Injection B-12 Injection Nurses Schedule Nydia 04/07/2017 Injection B-12 Injection Nurses Schedule Nydia 03/04/2017 Injection B-12 Injection Nurses Schedule Nydia 01/22/2017 Injection B-12 Injection Ayesha Barros MD 11/17/2016 Injection B-12 Injection Nurses Schedule Nydia 09/22/2016 Injection B-12 Injection Ayesha Barros MD 08/17/2016 Injection B-12 Injection Nurses Schedule Nydia 05/14/2016 Injection B-12 Injection Ayesha Barros MD 04/01/2016 Injection B-12 Injection Nurses Schedule Nydia 02/12/2016 Injection B-12 Injection Nurses Schedule Nydia 12/16/2015 Injection B-Noah Injection Ayesha Barros MD 08/09/2015 Injection B-12 Injection Nurses Schedule Nydia 06/28/2015 Injection B-12 Injection Nurses Schedule Nydia 05/09/2015 Injection B-12 Injection Ayesha Barros MD 03/04/2015 Injection B-12 Injection Nurses Schedule Nydia 01/11/2015 Injection B-12 Injection Ayesha Barros MD 12/04/2014 Injection B-12 Injection Nurses Schedule Nydia 10/26/2014 Injection B-12 Injection Nurses Schedule Nydia 09/21/2014 Injection B-12 Injection Nurses Schedule Nydia 08/07/2014 Injection B-12 Injection Nurses Schedule Nydia 06/25/2014 Injection B-12 Injection Nurses Schedule Nydia 05/23/2014 Injection B-12 Injection Nurses Schedule Nydia 04/20/2014 Injection B-12 Injection Nurses Schedule Nydia 03/16/2014 Injection B-12 Injection Nurses Schedule Nydia 02/12/2014 Injection B-12 Injection Ayesha Barros MD 01/11/2014 Injection B-12 Injection Nurses Schedule Nydia 12/07/2013 Injection B-12 Injection Nurses Schedule Nydia 11/03/2013 Injection B-12 Injection Nurses Schedule Nydia 10/02/2013 Injection B-12 Injection Nurses Schedule Nydia 08/30/2013 Injection B-12 Injection Nurses Schedule Nydia 07/25/2013 Injection B-12 Injection Nurses Schedule Nydia 06/26/2013 Injection B-12 Injection Nurses Schedule Nydia 05/24/2013 Injection B-12 Injection Nurses Schedule Nydia 04/24/2013 Injection B-12 Injection Nurses Schedule Nydia 03/22/2013 Injection B-12 Injection Nurses Schedule Nydia 02/20/2013 Injection B-12 Injection Nurses Schedule Nydia 01/23/2013 Injection B-12 Injection Nurses Schedule Nydia 12/26/2012 Injection B-12 Injection Nurses Schedule Nydia 10/20/2012 Injection B-12 Injection Nurses Schedule Nydia 09/19/2012 Injection B-12 Injection Ayesha Barros MD 08/19/2012 Injection B-12 Injection Nurses Schedule Nydia 07/20/2012 Injection B-12 Injection Nurses Schedule Nydia 06/17/2012 Injection B-12 Injection Nurses Schedule Nydia 05/16/2012 Injection B-12 Injection Nurses Schedule Nydia 04/15/2012 Injection B-12 Injection Nurses Schedule Nydia 03/15/2012 Injection B-12 Injection Nurses Schedule Nydia 02/05/2012 Injection B-12 Injection Nurses Schedule Nydia 01/07/2012 Injection B-12 Injection Nurses Schedule Nydia 11/30/2011 Injection B-12 Injection Nurses Schedule Nydia 10/28/2011 Injection B-12 Injection Nurses Schedule Nydia 09/28/2011 Injection B-12 Injection Nurses Schedule Nydia 08/28/2011 Injection B-12 Injection Ayesha Barros MD 07/29/2011 Injection B-12 Injection Nurses Schedule Nydia 06/26/2011 Injection B-12 Injection Nurses Schedule Nydia 05/25/2011 Injection B-12 Injection Ayesha Barros MD 04/24/2011 Injection B-12 Injection Nurses Schedule Nydia 04/24/2011 Injection B-12 Injection Nurses Schedule Nydia 03/24/2011 Injection B-12 Injection Nurses Schedule Nydia 02/20/2011 Injection B-12 Injection Ayesha Barros MD 01/19/2011 Injection B-12 Injection Nurses Schedule Nydia 12/22/2010 Injection B-12 Injection Nurses Schedule Nydia 11/21/2010 Injection B-12 Injection Nurses Schedule Nydia 10/20/2010 Injection B-12 Injection Nurses Schedule Nydia 09/16/2010 Injection B-12 Injection Nurses Schedule Nydia 08/15/2010 Injection B-12 Injection Nurses Schedule Nydia 07/15/2010 Injection B-12 Injection Nurses Schedule Nydia 06/13/2010 Injection B-12 Injection Nurses Schedule Nydia 05/14/2010 Injection B-12 Injection Maria Victoria Tucker RN MS 04/10/2010 Injection PATROL LADY B-12 Injection Nurses Schedule Nydia 03/14/2010 Injection B-12 Injection Ayesha Barros MD 03/07/2010 Injection B-12 Injection Nurses Schedule Nydia 02/25/2010 Injection B-12 Injection Ayesha Barros MD 02/18/2010 Injection Depo Medrol 40 MG Ayesha Barros MD 10/24/2002 Injection Immunizations CPT Code Status Date Vaccine Lot # [id number] Given 08/18/2019 Influenza Vac, Quadrivalent, Split, 0.5mL Dosage, [id number] Im Use 21460 Given 07/22/2018 Influenza Vac, Quadrivalent, Split, 0.5mL Dosage, [id number] Im Use 93783 Given 07/30/2017 Influenza Vac, Quadrivalent, Split, 0.5mL Dosage, [id number] Im Use 29747 Given 07/28/2016 Influenza Vac, Quadrivalent, Split, 0.5mL Dosage, [id number] Im Use 08004 Given 08/09/2015 Influenza Vac, Quadrivalent, Split, 0.5mL Dosage, [id number] Im Use 33657 Given 08/09/2015 Prevnar 13 Pneumococal Conjugate Vaccine [id number] 39089 Given 03/04/2015 Tdap (Adacel) Ages 7 And Above Only [id number] Q2038 Given 09/21/2014 Fluzone Trivalent Immunization [id number] Q2038 Given 09/08/2013 Fluzone Trivalent Immunization [id number] 80659 Given 12/20/2012 Pneumococcal 23 Immunization Adult Or [id number] Immunosuppressed Patient Q2038 Given 08/19/2012 Fluzone Trivalent Immunization [id number] Q2038 Given 07/29/2011 Fluzone Trivalent Immunization [id number] 25950 Given 09/10/2010 Afluria Or Fluvirin Flu Vac Intramuscular [id number] 02630 Given 12/10/2009 Administration Swine Flu Vaccine [id number] 66494 Given 12/10/2009 Influenza Virus Vaccine Pandemic Formulation - [id number] 59988 Given 12/10/2009 Influenza Virus Vaccine Pandemic Formulation - [id number] 21937 Given 08/23/2009 Afluria Or Fluvirin Flu Vac Intramuscular [id number] 22965 Given 09/24/2008 Afluria Or Fluvirin Flu Vac Intramuscular 24765 Given 09/24/2008 Afluria Or Fluvirin Flu Vac Intramuscular [id number] 70931 Given 09/06/2007 Afluria Or Fluvirin Flu Vac Intramuscular 93822 Given 09/01/2007 Afluria Or Fluvirin Flu Vac Intramuscular 34793 Given 09/01/2007 Afluria Or Fluvirin Flu Vac Intramuscular [id number] 28792 Given 10/18/2006 Afluria Or Fluvirin Flu Vac Intramuscular [id number] 54839 Given 10/06/2005 Afluria Or Fluvirin Flu Vac Intramuscular [id number] 02153 Given 08/19/2004 Afluria Or Fluvirin Flu Vac Intramuscular 32110 Given 09/04/2003 Afluria Or Fluvirin Flu Vac Intramuscular 81150 Given 07/13/2003 Immunization Td 7 Yrs Or Older 87366 Given 09/27/2002 Afluria Or Fluvirin Flu Vac Intramuscular 55622 Given 10/18/2001 Afluria Or Fluvirin Flu Vac Intramuscular 55223 Given 11/04/2000 Influenza Virus Vaccine, Whole Virus, Intramuscular Or Jet Inj. Vital Signs Date Vital Result Comment 11/24/2019 2:06pm Weight 133.00 lb Heart Rate 88 /min BP Systolic 144 mmHg BP Diastolic 66 mmHg Height 64 inches 5'4" BMI (Body Mass Index) 22.8 kg/m2 08/18/2019 10:34am Weight 137.00 lb Heart Rate 80 /min BP Systolic 156 mmHg BP Diastolic 72 mmHg Height 64 inches 5'4" BMI (Body Mass Index) 23.5 kg/m2 Results Test Acquired Date Facility Test Result H/L Range Note Laboratory test 10/30/2019 [facility] Lactic Acid 1.0 mmol/L Normal 0.5-2.0 1 finding CBC Auto Diff 10/30/2019 [facility] White Blood 5.9 10^3/uL Normal 3.5-10.8 Count Red Blood Count 4.46 10^6/uL Normal 3.70-4.87 Hemoglobin 13.4 g/dL Normal 12.0-16.0 Hematocrit 40 % Normal 35-47 Mean Corpuscular Volume 89 fL Normal 80-97 Mean Corpuscular Hemoglobin 30 pg Normal 27-31 Mean Corpuscular HGB Conc 34 g/dL Normal 31-36 Red Cell Distribution Width 14 % Normal 10-15 Platelet Count 259 10^3/uL Normal 150-450 Mean Platelet Volume 9.0 fL Normal 7.4-10.4 Abs Neutrophils 3.9 10^3/uL Normal 1.5-7.7 Abs Lymphocytes 1.3 10^3/uL Normal 1.0-4.8 Abs Monocytes 0.4 10^3/uL Normal 0-0.8 Abs Eosinophils 0.3 10^3/uL Normal 0-0.6 Abs Basophils 0.1 10^3/uL Normal 0-0.2 Abs Nucleated RBC 0.0 10^3/uL Granulocyte % 65.8 % Lymphocyte % 21.2 % Monocyte % 7.0 % Eosinophil % 5.1 % Basophil % 0.9 % Nucleated Red Blood Cells % 0.1 Laboratory test 10/30/2019 [facility] B Type 20 pg/mL <=100 finding Natriuretic Peptide Inr/Protime 10/30/2019 [facility] Inr 0.95 Normal 0.82-1.09 2 Laboratory test 10/30/2019 [facility] Activated 34.7 seconds Normal 26.0-38.0 finding Partial Thrombo Time Lactic Acid 1.7 mmol/L Normal 0.5-2.0 3 Troponin I 0.00 ng/mL <0.03 4 Comp Metabolic Panel 10/30/2019 [facility] Sodium 140 mmol/L Normal 135-145 Potassium 3.2 mmol/L Low 3.5-5.0 Chloride 101 mmol/L Normal 101-111 Co2 Carbon Dioxide 32 mmol/L Normal 22-32 Anion Gap 7 mmol/L Normal 2-11 Glucose 124 mg/dL High 70-100 Blood Urea Nitrogen 17 mg/dL Normal 6-24 Creatinine 0.71 mg/dL Normal 0.51-0.95 BUN/Creatinine Ratio 23.9 High 8-20 Calcium 9.3 mg/dL Normal 8.6-10.3 Total Protein 6.7 g/dL Normal 6.4-8.9 Albumin 3.5 g/dL Normal 3.2-5.2 Globulin 3.2 g/dL Normal 2-4 Albumin/Globulin Ratio 1.1 Normal 1-3 Total Bilirubin 0.40 mg/dL Normal 0.2-1.0 Alkaline Phosphatase 79 U/L Normal 34-104 Alt 17 U/L Normal 7-52 Ast 18 U/L Normal 13-39 Egfr Non- 78.4 >60 Egfr 94.9 >60 5 Urinalysis Profile 10/30/2019 [facility] Urine Color Straw Urine Appearance Clear Urine Specific [place] 1.009 Low 1.010-1.030 Urine pH 8.0 Normal 5-9 Urine Urobilinogen Negative Negative Urine Ketones Negative Negative Urine Protein Negative Negative Urine Leukocytes Negative Negative Urine Blood Negative Negative Urine Nitrite Negative Negative Urine Bilirubin Negative Negative Urine Glucose Negative Negative Laboratory test 10/30/2019 [facility] Magnesium 2.0 mg/dL Normal 1.9-2.7 finding Blood Culture SEE RESULT BELOW 6 1 [facility] Severe Sepsis and Septic Shock Management Bundle Measure requires all lactic acids initially measuring >2.0 mmol/L be repeated. 2 Standard intensity warfarin therapeutic range: 2.0-3.0 High intensity warfarin therapeutic range: 2.5-3.5 3 [facility] Severe Sepsis and Septic Shock Management Bundle Measure requires all lactic acids initially measuring >2.0 mmol/L be repeated. 4 Troponin-I testing on Plasma Separator Tubes (PST) has a known false positive rate of 0.20-0.40%. All positive troponins reflex immediately to secondary confirmatory testing. Using the Nix Hydra 800 Access Immunoassay systems, the 99th percentile upper reference limit was demonstrated to be < 0.03 ng/mL. 5 Because ethnic data is not always readily available, this report includes an eGFR for both -Americans and non- Americans. The National Kidney Disease Education Program (NKDEP) does not endorse the use of the MDRD equation for patients that are not between the ages of 18 and 70, are , have extremes of body size, muscle mass, or nutritional status, or are non- or non-. According to the National Kidney Foundation, irrespective of diagnosis, the stage of the disease is based on the level of kidney function: Stage Description GFR(mL/min/1.73 m(2)) 1 Kidney damage with normal or decreased GFR 90 2 Kidney damage with mild decrease in GFR 60-89 3 Moderate decrease in GFR 30-59 4 Severe decrease in GFR 15-29 5 Kidney failure <15 (or dialysis) 6 SEE RESULT BELOW Name: NEISHA MOLINA : [address]: Beto Vaz MD Acct: [id number] Unit: [id number] AGE: 83 Location: [place] [address] Re10/30/19 Dis: 10/31/19 SEX: F Status: DIS Amy SPEC: [id number] KAILASH: 10/30/[address] [facility] [address]: Olman Duggan MD REQ: [id number] RECD: 10/30/19 STATUS: LUANN ALONSO DR: Ayesha Barros MD _ SOURCE: BLOOD,VENO SPDES: ORDERED: Blood Cult Procedure Result Reported Site Aerobic Culture Bottle Final 11/04/19- 1504 ML No Growth Day 5 Anaerobic Culture Bottle Final 11/04/19- 1504 ML No Growth Day 5 * [facility] - Main Lab . END OF REPORT DEPARTMENT OF PATHOLOGY, [address] [place] [address] Prem Paz M.D. Director [facility] # [id number] Procedures Date Code Description Status 08/18/2019 73465 Admin Of Inj (Therapeutic Phrophylactic Or Diagnostic Completed Subq Inj 03/05/2016 830922671 Bone Mineral Density Test Completed 03/05/2016 [id number] Mammogram Completed 01/29/2015 [id number] Mammogram Completed 01/05/2014 [id number] Bone Mineral Density Test Completed 01/05/2014 52558392 Mammogram Completed 09/19/2012 [id number] Mammogram Completed 03/04/2011 741437586 Bone Mineral Density Test Completed 10/17/2010 [id number] Mammogram Completed 04/02/2010 12883421 Colonoscopy Completed 08/01/2009 [id number] Mammogram Completed Medical Devices Description No Information Available Encounters Type Date Location Provider Dx Diagnosis Office Visit 08/18/2019 [place] Ayesha Barros M17.0 Bilateral primary 10:00a MD Fernanda osteoarthritis of knee I73.89 Other specified peripheral vascular diseases R60.0 Localized edema Z23 Encounter for immunization D51.9 Vitamin B12 deficiency anemia, unspecified Assessments Date Code Description Provider 11/24/2019 Z00.01 Encounter for general adult medical Ayesha Barros MD examination with abnormal findings 11/24/2019 I73.89 Other specified peripheral vascular diseases Ayesha Barros MD 11/24/2019 M71.22 Synovial cyst of popliteal space [[place]], Ayesha Barros MD LEFT knee 11/24/2019 D51.9 Vitamin B12 deficiency anemia, unspecified Ayesha Barros MD 11/24/2019 M17.0 Bilateral primary osteoarthritis of knee Ayesha Barros MD 11/24/2019 E03.9 Hypothyroidism, unspecified Ayesha Barros MD 11/24/2019 K21.0 Gastro-esophageal reflux disease with Ayesha Barros MD esophagitis 11/24/2019 E78.2 Mixed hyperlipidemia Ayesha Barros MD 11/24/2019 E55.9 Vitamin D deficiency, unspecified Ayesha Barros MD 11/24/2019 R39.15 Urgency of urination Ayesha Barros MD 11/24/2019 F41.1 Generalized anxiety disorder Ayesha Barros MD 11/24/2019 Z12.31 Encounter for screening mammogram for Ayesha Barros MD malignant neoplasm of breast 11/24/2019 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, 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 Barros MD classified 11/24/2019 R60.0 Localized edema Ayesha Barros MD 11/24/2019 F32.9 Major depressive disorder, single episode, Ayesha Barros MD unspecified 11/24/2019 M85.9 Disorder of bone density and structure, Ayesha Barros MD unspecified 11/24/2019 G31.84 Mild cognitive impairment, so stated Ayesha Barros MD 11/24/2019 R26.81 Unsteadiness on feet Ayesha Barros MD 11/24/2019 I65.23 Occlusion and stenosis of bilateral carotid Ayesha Barros MD arteries 11/24/2019 N64.4 Mastodynia Ayesha Barros MD 11/21/2019 M71.22 Synovial cyst of popliteal space [[place]], Ayesha Barros MD LEFT knee 11/01/2019 M71.22 Synovial cyst of popliteal space [[place]], Ayesha Barros MD LEFT knee 11/01/2019 I10 Essential (primary) hypertension Ayesha Barros MD 11/01/2019 F41.9 Anxiety disorder, unspecified yAesha Barros MD 11/01/2019 F32.9 Major depressive disorder, single episode, Ayesha Barros MD unspecified 11/01/2019 I73.9 Peripheral vascular disease, unspecified Ayesha Barros MD 11/01/2019 Z91.81 History of falling Ayesha Barros MD 08/18/2019 M17.0 Bilateral primary osteoarthritis of knee Ayesha Barros MD 08/18/2019 I73.89 Other specified peripheral vascular diseases Ayesha Barros MD 08/18/2019 R60.0 Localized edema Ayesha Barros MD 08/18/2019 Z23 Encounter for immunization Ayesha Barros MD 08/18/2019 D51.9 Vitamin B12 deficiency anemia, unspecified Ayesha Barros MD Plan of Treatment Future Appointment(s):12/25/2019 4:30 pm - Ayesha Barros MD at [id number]/24 - Ayesha Barros MDZ00.01 Encounter for general adult medical examination with abnormal findingsFollow up:PL GIVE PACKET RE: HEALTH CARE PROXY , LIVING WILL, DNRI73.89 Other specified peripheral vascular diseasesNew Medication:Aspirin Ec 81 mg - 1 by mouth every dayM71.22 Synovial cyst of popliteal space [[place]], LEFT kneeD51.9 Vitamin B12 deficiency anemia, xwvimqizyvoB19.0 Bilateral primary osteoarthritis of kneeE03.9 Hypothyroidism, kcvhktdjchaY77.0 Gastro-esophageal reflux disease with lauerpbhekmG57.2 Mixed hyperlipidemiaNew Labs:CBC with Auto Diff-fcmg, Ordered: 11/24/19Comprehensive Met Panel-FCMG, Ordered: 11/24/19Lipid, Ordered: 11/24/19TSH, Ordered: Vit D 25Oh, Ordered: 11/24/19E55.9 Vitamin D deficiency, uivqfpsjqjiI99.15 Urgency of zqmiycqkrG68.1 Generalized anxiety ojggyzryG20.31 Encounter for screening mammogram for malignant neoplasm of mfnzriV85.1 Reflex neuropathic bladder, not elsewhere cykwtewszeY91.0 Localized gafvmL24.9 Major depressive disorder, single episode, unspecifiedNew Medication:Mirtazapine 7.5 mg - take 1 tablet by mouth every night at bedtimeFollow up:1 mosM85.9 Disorder of bone density and structure, unspecifiedNew Xrays:Mammogram Screening, Bilateral Incl CAD When Performe, Ordered: 11/24/19Bone Density Study (Dexa), Ordered: G31.84 Mild cognitive impairment, so kxrhtbK17.81 Unsteadiness on feetReferral :[facility]/Phys TherI65.23 Occlusion and stenosis of bilateral carotid arteriesNew Xrays:Carotid Doppler Duplex Scan- Complete Bilateral Study, Ordered: 11/24/19Follow up:carotids w/in 1 mosN64.4 Mastodynia Functional Status Description No Information Available Mental Status Description No Information Available Referrals Refer to Reason for Referral Status Appt Date [facility] Physical gait/balance program Scheduled 12/06/2019 Therapy 11/24-SCHEDULED WITH CARISSA WHILE IN OFFICE SO IS DEF AWARE OF APPT-AA [address] [facility] [address] [phone] Kathy Ramirez MD. circulation is lousy in BOTH feet [place] OFFICE Closed AFTERNOON APPT. 09/18-PER DEAN THEY DID NOT GET THIS, REFERAL REFAXED-AA [phone] 09/19-PER ROSIBEL PT IS SCHEDULED IN [place] AND IS AWARE-AA [address] [place] [address] [phone]
[2019-12-03 15:57] LABS: ABS Basophils 0.1 10^3/ul (0-0.2); ABS Eosinophils 0.3 10^3/ul (0-0.6); ABS Lymphocytes 1.3 10^3/ul (1.0-4.8); ABS Monocytes 0.4 10^3/ul (0-0.8); ABS Neutrophils 3.3 10^3/ul (1.5-7.7); Eosinophil % 5.4 %; Hematocrit 37 % (35-47); Hemoglobin 12.4 g/dL (12.0-16.0); Lymphocyte % 24.3 %; Mean Corpuscular HGB Conc 33 g/dL (31-36); Mean Corpuscular Hemoglobin 30 pg (27-31); Mean Corpuscular Volume 90 fL (80-97); Mean Platelet Volume 7.9 fL (7.4-10.4); Nucleated Red Blood Cells % 0.1; Platelet Count 254 10^3/uL (150-450); Red Blood Count 4.14 10^6 /uL (3.70-4.87); Red Cell Distribution Width 14 % (10-15); White Blood Count 5.4 10^3/uL (3.5-10.8)
--- NOTE | 2019-12-03 16:12 | ED ---
Complex/Multi-Sys Presentation - HPI Summary HPI Summary: 83 y/o female presented to [facility] after feeling more drowsy than usual. Pt was difficult to get out of bed per daughter this morning but was later alert and oriented. She states that she feels tired but notes no weakness. Pt has slight urinary incontinence and Hx of a Botox injection to her bladder. Her left leg is red, sore, and hurts to touch but she notes this has been the case for years after an incident with a dog. Medications reviewed. Allergies noted. - History Of Current Complaint Time Seen by Provider: 12/03/19 15:45 Hx Obtained From: Patient Onset/Duration: Still Present Location: Negative Character: Unable To Describe - drowsy Associated Signs And Symptoms: Negative: Weakness - Allergies/Home Medications Allergies/Adverse Reactions: Allergies Allergy/AdvReac Type Severity Reaction Status Date / Time Penicillins Allergy Rash Verified 10/30/19 14:50 PMH/Surg Hx/FS Hx/Imm Hx Endocrine/Hematology History: Reports: Hx Anticoagulant Therapy, Hx Thyroid Disease, Hx Anemia Denies: Hx Diabetes Cardiovascular History: Reports: Hx Angina, Hx Hypercholesterolemia, Hx Hypertension, Hx Peripheral Vascular Disease Denies: Hx Pacemaker/ICD Respiratory History: Reports: Hx Asthma GI History: Reports: Hx Gastroesophageal Reflux Disease, Other GI Disorders - constipation History: Denies: Hx Renal Disease Musculoskeletal History: Reports: Hx Arthritis - hips, Hx Back Problems Sensory History: Reports: Hx Cataracts - removal and lens implants placed Denies: Hx Contacts or Glasses, Hx Hearing Aid Opthamlomology History: Reports: Hx Cataracts - removal and lens implants placed Denies: Hx Contacts or Glasses Psychiatric History: Reports: Hx Anxiety Denies: Hx Panic Disorder - Surgical History Surgery Procedure, Year, and Place: Cataract surgery with lens implants. D+C after miscarriage at age 34 Hx Anesthesia Reactions: No Infectious Disease History: Unable to Obtain/Confirm Infectious Disease History: Reports: Hx Tuberculosis - At age 25, neg cxr 09/19 Denies: Traveled Outside the [place] in Last 30 Days - Family History Known Family History: Positive: Hypertension, Other - strokes - Social History Alcohol Use: Rare Hx Substance Use: No Substance Use Type: Reports: None Hx Tobacco Use: No Smoking Status (MU): Never Smoked Tobacco Review of Systems Positive: Fatigue Negative: Weakness All Other Systems Reviewed And Are Negative: Yes Physical Exam - Summary Physical Exam Summary: Constitutional: Well-developed, Well-nourished, Alert. (-) Distressed Skin: Warm, Dry HENT: Normocephalic; Atraumatic Eyes: Conjunctiva normal Neck: Musculoskeletal ROM normal neck. (-) JVD, (-) Stridor, (-) Tracheal deviation Cardio: Rhythm regular, rate normal, Heart sounds normal; Intact distal pulses. Radial pulses are 2+ and symmetric. (-) Murmur Pulmonary/Chest wall: Effort normal. (-) Respiratory distress, (-) Wheezes, (-) Rales Abd: Soft. (-) Tenderness, (-) Distension, (-) Guarding, (-) Rebound Musculoskeletal: (-) Edema Lymph: (-) Cervical adenopathy Neuro: Alert, Oriented x3, Strength normal, Cranial nerves II-XII are grossly intact. (-) Dysmetria, (-) Nystagmus, (-) Ataxia by finger to nose testing, (-) Sensory deficit. NIH 0. GCS 15. Psych: Mood and affect Normal Triage Information Reviewed: Yes Vital Signs On Initial Exam: Initial Vitals Temp Pulse Resp BP Pulse Ox 98.3 F 70 18 170/70 98 12/03/19 15:55 12/03/19 15:55 12/03/19 15:55 12/03/19 15:55 12/03/19 15:55 Vital Signs Reviewed: Yes Procedures - Sedation Patient Received Moderate/Deep Sedation with Procedure: No Diagnostics - Vital Signs Vital Signs Temp Pulse Resp BP Pulse Ox 12/03/19 16:04 73 16 177/70 100 12/03/19 15:55 98.3 F 70 18 170/70 98 - Laboratory Lab Results: Lab Results 12/03/19 Range/Units 15:51 WBC 5.4 (3.5-10.8) 10^3/uL RBC 4.14 (3.70-4.87) 10^6 /uL Hgb 12.4 (12.0-16.0) g/dL Hct 37 (35-47) % MCV 90 (80-97) fL MCH 30 (27-31) pg MCHC 33 (31-36) g/dL RDW 14 (10-15) % Plt Count 254 (150-450) 10^3/uL MPV 7.9 (7.4-10.4) fL Neut % (Auto) 60.7 % Lymph % (Auto) 24.3 % [place] % (Auto) 8.3 % Eos % (Auto) 5.4 % Baso % (Auto) 1.3 % Absolute Neuts (auto) 3.3 (1.5-7.7) 10^3/ul Absolute Lymphs (auto) 1.3 (1.0-4.8) 10^3/ul Absolute Monos (auto) 0.4 (0-0.8) 10^3/ul Absolute Eos (auto) 0.3 (0-0.6) 10^3/ul Absolute Basos (auto) 0.1 (0-0.2) 10^3/ul Absolute Nucleated RBC 0.0 10^3/ul Nucleated RBC % 0.1 Result Diagrams: 12/03/19 15:51 12/03/19 15:51 Lab Statement: Any lab studies that have been ordered have been reviewed, and results considered in the medical decision making process. - CT head CT Interpretation Completed By: Radiologist Summary of CT Findings: IMPRESSION: 1. No acute intercranial abnormality. 2. Mild cerebral volume loss. 3. Mild chronic small vessel scanner disease is likely. The ED physician has reviewed this report. - EKG 1602 Cardiac Rate: NL EKG Rhythm: Sinus Rhythm Summary of EKG Findings: NSR at 82bpm. No STEMI. This EKG was reviewed and interpreted by the ED physician. Complex Multi-Symp Course/Dx Course Of Treatment: Patient is here with fatigue and difficulty staying awake. Patient's had issues with her memory over the past couple months. Patient has no complaints probable here outside of feeling tired. Patient has a area of erythema to her leg but this is chronic per her and usually tender. Patient had blood performed including thyroid studies which were negative. Patient had negative CT scan of her brain. Patient was referred to [facility] and seems to referral. Patient could have dementia but definitely needs to be followed up with by primary care doctor in the area. - Diagnoses Provider Diagnoses: Fatigue, Memory impairment Discharge ED - Sign-Out/Discharge Documenting (check all that apply): Patient Departure - dc - Discharge Plan Condition: Stable Disposition: HOME Patient Education Materials: Fatigue (ED) Referrals: [facility] [Outside] [facility] PHYSICIAN REFERRAL [Outside] Additional Instructions: PLEASE RETURN TO EMERGENCY DEPARTMENT FOR ONE-SIDED WEAKNESS, DIZZINESS, SLURRED SPEECH, OR OTHER CONCERNS. Please follow up with the [facility] and a [facility] physician DENISE. - Billing Disposition and Condition Condition: STABLE Disposition: Home - Attestation Statements Document Initiated by Nick: Yes Documenting Scribe: Raimundo Dunbar Provider For Whom Nick is Documenting (Include Credential): Clement Nair MD Scribe Attestation: Raimundo De La Cruz, scribed for Clement Nair MD on 12/03/19 at 1826. Scribe Documentation Reviewed: Yes Provider Attestation: The documentation as recorded by the Raimundo cr accurately reflects the service I personally performed and the decisions made by , Clement Nair MD Status of Scribe Document: Viewed
[2019-12-03 16:15] LABS: Albumin 3.3 g/dL (3.2-5.2); Albumin/Globulin Ratio 1.1 (1-3); Calcium 9.1 mg/dL (8.6-10.3); EGFR African American 108.9 (>60); Potassium 3.5 mmol/L (3.5-5.0); Total Bilirubin 0.2 mg/dL (0.2-1.0); Total Protein 6.3 g/dL (6.4-8.9)
[2019-12-03 16:38] LABS: Urine Appearance Clear; Urine Bilirubin Negative (Negative); Urine Blood Negative (Negative); Urine Color Straw; Urine Glucose Negative (Negative); Urine Ketones Negative (Negative); Urine Nitrite Negative (Negative); Urine Protein Negative (Negative); Urine Specific Gravity 1.009 (1.010-1.030); Urine Urobilinogen Negative (Negative)
[2019-12-03 16:58] LABS: TSH (Thyroid Stimulating Horm) 3.3 mcIU/mL (0.34-5.60)
[2019-12-03 18:28] VITALS: BP 157/75
== END 2019-12-03 18:27 | disposition home or self-care (01) ==
LOC: ED 15:40
DX: R53.83 Other fatigue (principal); R41.3 Other amnesia; E07.9 Disorder of thyroid, unspecified; D64.9 Anemia, unspecified; E78.00 Pure hypercholesterolemia, unspecified; I10 Essential (primary) hypertension; I73.9 Peripheral vascular disease, unspecified; J45.909 Unspecified asthma, uncomplicated; K21.9 Gastro-esophageal reflux disease without esophagitis; F41.9 Anxiety disorder, unspecified; Z88.0 Allergy status to penicillin
CPT/HCPCS: 36415; 70450; 80053; 81003; 84443; 84484; 85025; 93005; 99282

== ENCOUNTER 2020-02-07 11:53 | Inpatient (IN) | payer MEDICARE ==
[2020-02-07] MEDS ORDERED: diPHENhydraMINE IV* 50 MG/ML 1 ml VIAL (BENADRYL) IV PRN (12:16)
[2020-02-07] MEDS ORDERED: Ondansetron INJ* 2 MG/ML VIAL IV PRN (12:16)
[2020-02-07] MEDS ORDERED: Magnesium Hydroxide LIQ* 30 ML UDC PO PRN (12:16)
[2020-02-07] MEDS ORDERED: Ondansetron ODT TAB* 4 MG PO PRN (12:16)
[2020-02-07] MEDS ORDERED: diPHENhydraMINE PO* 25 MG PO PRN (12:16)
--- OUTSIDE RECORDS SUMMARY | 2020-02-07 12:31 | XMS REPORT | Continuity of Care Document ---
:1935 External Reference #:[id number] Author Name Rosie Tobias M.D., FAC (transmitted by agent of provider Emperatriz Spain) Address [address], [place] [address] Care Team Providers Name Role Phone Rosie Tobias MD - Internal Medicine Care Team Information Chief Of Safety And Protection Problems Active Problems Provider Date Peripheral arterial occlusive disease Antonia Paredes MD, [facility], Onset: FSCAI Hyperlipidemia Saad Hernandez M.D. Onset: 10/27/2016 Anemia Saad Hernandez M.D. Onset: 10/27/2016 Hypothyroidism Saad Hernandez M.D. Onset: 10/27/2016 Gastroesophageal reflux disease Saad Hernandez M.D. Onset: 10/27/2016 Depressive disorder Saad Hernandez M.D. Onset: 10/27/2016 Anxiety Saad Hernandez M.D. Onset: 10/27/2016 Osteoporosis Saad Hernandez M.D. Onset: 10/27/2016 Asthma Saad Hernandez M.D. Onset: 10/27/2016 Tuberculosis Saad Hernandez M.D. Onset: 10/27/2016 Note: Age 25 Acquired trigger finger Saad Merchant MD Onset: 11/20/2016 Snapping thumb syndrome Saad Merchant MD Onset: 11/20/2016 Localized, primary osteoarthritis Susan Daly M.D. Onset: 11/28/2018 Arthralgia of the ankle and/or foot Susan Daly M.D. Onset: 06/19/2019 Social History Type Date Description Comments Sex Unknown Tobacco Use Start: Unknown Never Smoked Cigarettes Smoking Status Reviewed: 12/18/19 Never Smoked Cigarettes ETOH Use Rarely consumes alcohol very rarely, one glass of wine Tobacco Use Start: Unknown Patient has never smoked Recreational Drug Use Denies Drug Use Exercise Type/Frequency Does not exercise Allergies, Adverse Reactions, Alerts Active Allergies Reaction Severity Comments Date Penicillins 04/18/2014 Erythromycin 12/02/2015 Medications Active Medications SIG Qnty Indications Ordering Date Provider Ranitidine HCL 1 po bid Unknown 150mg 0 Simvastatin 1 by mouth every Unknown 40mg Tablets day 0 Levothyroxine Sodium 1 by mouth every Unknown 75mcg day 0 Tablets Fluticasone Propionate 2 sprays each Unknown nostril daily 0 50mcg/Act Suspension Cyanocobalamin 1 milliliters Unknown 1000mcg/ML intramuscular 0 Solution [id number] Voltaren apply to affected 100gm Rosie , 1% Gel area as needed M.D., FACP 0 Proventil HFA 2 puffs by mouth Unknown 108(90Base) every 4 hours prn 0 mcg/Act Aerosol Vitamin D 1 by mouth every Unknown 2000Unit Tablets day 0 Calcium 600+D daily Unknown [id number] 0 Tablets Clonazepam 1/2 to 1 tab by 60tabs F41.9 Unknown 0.5mg Tablets mouth twice daily 0 as needed for anxiety Paroxetine HCL ER F41.9 Unknown 37.5mg 0 Tablets ER 24HR Aspirin 81 1 by mouth every Unknown 81mg Tablets DR day 0 Hydrochlorothiazide 1 by mouth every Rosie , 25mg day M.D., FACP 0 Tablets Medications Administered in Office Medication SIG Qnty Indications Ordering Provider Date Depomedrol 40MG JUDIE Reddy 05/15/2019 Injection Depomedrol 80MG Laila Ledbetter M.D. 04/29/2015 Injection Depomedrol 40MG Laila Ledbetter M.D. 04/29/2015 Injection Immunizations Description No Information Available Vital Signs Date Vital Result Comment 12/18/2019 10:29am Height 62 inches 5'2" Weight 136.25 lb Heart Rate 86 /min BP Systolic 136 mmHg BP Diastolic 66 mmHg Body Temperature 97.2 F O2 % BldC Oximetry 98 % BMI (Body Mass Index) 24.9 kg/m2 06/19/2019 4:01pm Height 62 inches 5'2" Weight 130.00 lb Heart Rate 71 /min BP Systolic 110 mmHg BP Diastolic 60 mmHg Body Temperature 99.0 F Pain Level 2 BMI (Body Mass Index) 23.8 kg/m2 Results Description No Information Available Procedures Date Code Description Status 11/15/2009 [id number] Colonoscopy Completed Medical Devices Description No Information Available Encounters Type Date Location Provider Dx Diagnosis Office Visit 10/31/2019 [facility] Deepthi Plunkett, M71.22 Synovial cyst of 8:58a Assoc,pc [employer] popliteal space [facility]ists [[place]], left knee I10 Essential (primary) hypertension E78.5 Hyperlipidemia, unspecified F41.9 Anxiety disorder, unspecified E03.9 Hypothyroidism, unspecified K21.9 Gastro-esophageal reflux disease without esophagitis Office Visit 10/30/2019 8:58a [facility] Deepthi Plunkett, M71.22 Synovial cyst Assoc,pc LEAD TECHNICAL ARCHITECT of popliteal Hospitalists space [[place]], left knee E87.6 Hypokalemia F32.9 Major depressive disorder, single episode, unspecified F41.9 Anxiety disorder, unspecified E03.9 Hypothyroidism, unspecified I10 Essential (primary) hypertension E78.5 Hyperlipidemia, unspecified K21.9 Gastro-esophageal reflux disease without esophagitis Office Visit 06/19/2019 3:15p [facility] Susan Daly, M25.475 Effusion, left at [place] M.D. foot M25.572 Pain in left ankle and joints of left foot Assessments Date Code Description Provider 12/18/2019 F41.9 Anxiety disorder, unspecified Rosie Tobias M.D., FACP 12/18/2019 G31.84 Mild cognitive impairment, so stated Rosie Tobias M.D., FACP 12/18/2019 M25.561 Pain in right knee Rosie Tobias M.D., FACP 12/18/2019 G47.00 Insomnia, unspecified Rosie Tobias M.D., FACP 12/18/2019 E78.5 Hyperlipidemia, unspecified Rosie Tobias M.D., FACP 12/18/2019 E03.9 Hypothyroidism, unspecified Rosie Tobias M.D., FACP 10/31/2019 M71.22 Synovial cyst of popliteal space [[place]], Deepthisherice Wilsonk, LEAD TE[employer]NICAL ARCHITECT left knee 10/31/2019 I10 Essential (primary) hypertension Deepthi RTracik, LEAD TECHNICAL ARCHITECT 10/31/2019 E78.5 Hyperlipidemia, unspecified Deepthi R.Jatin, LEAD TECHNICAL ARCHITECT 10/31/2019 F41.9 Anxiety disorder, unspecified Deepthi R.Jatin, LEAD TECHNICAL ARCHITECT 10/31/2019 E03.9 Hypothyroidism, unspecified Deepthi R.Jatin, LEAD TECHNICAL ARCHITECT 10/31/2019 K21.9 Gastro-esophageal reflux disease without Deepthi R.Jatin, LEAD TECHNICAL ARCHITECT esophagitis 10/30/2019 M71.22 Synovial cyst of popliteal space [[place]], Deepthi R.Jatin, LEAD TECHNICAL ARCHITECT left knee 10/30/2019 E87.6 Hypokalemia Deepthi RTracik, LEAD TECHNICAL ARCHITECT 10/30/2019 F32.9 Major depressive disorder, single episode, Deepthi RTracik, LEAD TECHNICAL ARCHITECT unspecified 10/30/2019 F41.9 Anxiety disorder, unspecified Deepthi R.Jatin, LEAD TECHNICAL ARCHITECT 10/30/2019 E03.9 Hypothyroidism, unspecified Deepthi R.Jatin, LEAD TECHNICAL ARCHITECT 10/30/2019 I10 Essential (primary) hypertension Deepthi RSanti, LEAD TECHNICAL ARCHITECT 10/30/2019 E78.5 Hyperlipidemia, unspecified Deepthi R.Jatin, LEAD TECHNICAL ARCHITECT 10/30/2019 K21.9 Gastro-esophageal reflux disease without Deepthi RSanti, LEAD TECHNICAL ARCHITECT esophagitis 06/19/2019 M25.475 Effusion, left foot Susan Daly M.D. 06/19/2019 M25.572 Pain in left ankle and joints of left foot Susan Daly M.D. Plan of Treatment Future Appointment(s):03/18/2020 4:30 pm - Rosie [facility] M.D., FACP [facility] - Rosie Tobias M.D., FACPF41.9 Anxiety disorder, unspecifiedComments:ANXIETY:I am glad to know that you are doing generally well on the paroxetine and clonazepam.I thinkthat you would benefit from takl therapy.Follow up:3 flrruvT62.84 Mild cognitive impairment, so statedComments:MEMORY ISSUES:Your mental status exam today showed that you have some mild cognitive decline. Some of this may be due to your sleep fragmentation. It is important to stay as physically, mentally and socially active as possible.I have given you some information about resources in the community. https://www.IndigoBoomyalobusha general hospitalInvoiceSharing./507/Ytwjck-enm-www-[facility]ging[facility]:// www.iRezQ.Pay with a Tweet/local/rdpzsa-kbyiiw-iipifl-air-pao-dvffv-kwiapo-rxeb-wixiap-on -aging-ar Claudio [address] DriveP[place] [phone] Pain in right kneeNew Therapy:Physical TherapyComments:KNEE PAIN:I understand that this has been ongoing for years. I recommend quad strengthening exercises. Let me knowif this symptom does not resolve with PT. We talked about the importance of being able to walk without pain because of the risk of falling when your legs are not strong and reliable.G47.00 Insomnia, unspecifiedComments:INSOMNIA:We discussed sleep hygiene today. Try to maintain a routine. Turn the clock away so that you are not checking the time during the night: doing so wakes up more parts of your brain. Some people find that melatonin is helpful.E78.5 Hyperlipidemia, unspecifiedComments:HYPERLIPIDEMIA: In the past your cholesterol has been reasonably well controlled on a low dose of a statin medication. It is time to recheck fasting labs.E03.9 Hypothyroidism , unspecifiedComments:HYPOTHYROID:You appear clinically appropriately replaced.We will check thyroid function tests on your current levothyroxine dose.Follow up:I will contact you with the test results when they are available. Functional Status Description No Information Available Mental Status Description No Information Available Referrals Refer to Reason for Referral Status Appt Date Royal Lyons DPM eval ingrkym nail and nail fungus Sent 08/03/[address] [place] [address] [phone]
--- OUTSIDE RECORDS SUMMARY | 2020-02-07 12:31 | XMS REPORT | Continuity of Care Document ---
:1935 External Reference #:[id number] Author Name Susan Daly M.D. (transmitted by agent of provider Felicia Ennis) Address [address] [place] [id number] Care Team Providers Name Role Phone Rosie Tobias MD - Internal Medicine Care Team Information Oceanologist Problems Active Problems Provider Date Peripheral arterial occlusive disease Antonia Paredes MD, [facility], Onset: FSCAI Hyperlipidemia Saad Hernandez M.D. Onset: [...] Unknown Never Smoked Cigarettes Smoking Status Reviewed: 02/02/20 Never Smoked Cigarettes ETOH Use Rarely consumes alcohol very rarely, one glass of wine Tobacco Use Start: Unknown Patient has never smoked Recreational Drug Use Denies Drug Use Exercise Type/Frequency Does not exercise Allergies, Adverse Reactions, Alerts Active Allergies Reaction Severity Comments Date Penicillins 04/18/2014 Erythromycin 12/02/2015 Medications Active Medications SIG Qnty Indications Ordering Date Provider Sulfamethoxazole/Trimetho take 1 by mouth 28tabs Susan Daly, prim DS every 12 hours x 14 M.D. 0 800-160mg Tablets days Ranitidine HCL 1 po bid Unknown 150mg 0 Simvastatin 1 by mouth every Unknown 40mg Tablets day 0 Levothyroxine Sodium 1 by mouth every Unknown 75mcg day 0 Tablets Fluticasone Propionate 2 sprays each Unknown nostril daily 0 50mcg/Act Suspension Cyanocobalamin 1 milliliters Unknown 1000mcg/ML intramuscular 0 Solution [id number] Voltaren apply to 2 grams 100gm Rosie Micheline, 1% Gel twice daily to M.D., FACP 0 knees as needed Proventil HFA 2 puffs by mouth Unknown 108(90Base) every 4 hours prn 0 mcg/Act Aerosol Vitamin D 1 by mouth every Unknown 2000Unit Tablets day 0 Calcium 600+D daily Unknown [id number] 0 Tablets Clonazepam 1/2 to 1 tab by 60tabs F41.9 Unknown 0.5mg Tablets mouth twice daily 0 as needed for anxiety Paroxetine HCL ER F41.9 Unknown 37.5mg 0 Tablets ER 24HR Aspirin 81 1 by mouth every Unknown 81mg Tablets DR day 0 Hydrochlorothiazide 1 by mouth every Rosie Micheline, 25mg day M.D., FACP 0 Tablets Medications Administered in Office Medication SIG Qnty Indications Ordering Provider Date Depomedrol 40MG JUDIE Reddy 05/15/2019 Injection Depomedrol 80MG Laila Ledbetter M.D. 04/29/2015 Injection Depomedrol 40MG Laila Ledbetter M.D. 04/29/2015 Injection Immunizations Description No Information Available Vital Signs Date Vital Result Comment 02/02/2020 11:44am Height 62 inches 5'2" Weight 133.00 lb Heart Rate 68 /min BP Systolic 128 mmHg BP Diastolic 58 mmHg Respiratory Rate 20 /min Pain Level 5 BMI (Body Mass Index) 24.3 kg/m2 12/18/2019 10:29am Height 62 inches 5'2" Weight 136.25 lb Heart Rate 86 /min BP Systolic 136 mmHg BP Diastolic 66 mmHg Body Temperature 97.2 F O2 % BldC Oximetry 98 % BMI (Body Mass Index) 24.9 kg/m2 Results Description No Information Available Procedures Date Code Description Status 11/15/2009 [id number] Colonoscopy Completed Medical Devices Description No Information Available Encounters Type Date Location Provider Dx Diagnosis Office Visit 12/18/2019 [employer] [facility] Rosie Tobias, F41.9 Anxiety disorder, 10:30a Medicine - Mark Gustafson, FACP unspecified G31.84 Mild cognitive impairment, so stated M25.561 Pain in right knee G47.00 Insomnia, unspecified E78.5 Hyperlipidemia, unspecified E03.9 Hypothyroidism, unspecified Office Visit 10/31/2019 8:58a [facility] Deepthi Plunkett, M71.22 Synovial cyst Assoc,pc LEATHER TANNER of [facility] space [[place]], left knee I10 Essential (primary) hypertension E78.5 Hyperlipidemia, unspecified F41.9 Anxiety disorder, unspecified E03.9 Hypothyroidism, unspecified K21.9 Gastro-esophageal reflux disease without esophagitis Office Visit 10/30/2019 8:58a [facility] Deepthi Plunkett, M71.22 Synovial cyst Assoc,pc LEATHER TANNER of [facility] [[place]], left knee E87.6 Hypokalemia F32.9 Major depressive disorder, single episode, unspecified F41.9 Anxiety disorder, unspecified E03.9 Hypothyroidism, unspecified I10 Essential (primary) hypertension E78.5 Hyperlipidemia, unspecified K21.9 Gastro-esophageal reflux disease without esophagitis Assessments Date Code Description Provider 12/18/2019 F41.9 [...] Synovial cyst of popliteal space [[place]], Deepthi Wilsonk, LEATHER TANNER left knee 10/31/2019 I10 Essential (primary) hypertension Deepthi RMartaJatin, LEATHER TANNER 10/31/2019 E78.5 Hyperlipidemia, unspecified Deepthi R.Jatin, LEATHER TANNER 10/31/2019 F41.9 Anxiety disorder, unspecified Deepthi R.Jatin, LEATHER TANNER 10/31/2019 E03.9 Hypothyroidism, unspecified Deepthi R.Jatin, LEATHER TANNER 10/31/2019 K21.9 Gastro-esophageal reflux disease without Deepthi R.Jatin, LEATHER TANNER esophagitis 10/30/2019 M71.22 Synovial cyst of popliteal space [[place]], Deepthi R.Jatin, LEATHER TANNER left knee 10/30/2019 E87.6 Hypokalemia Deepthi R.Jatin, LEATHER TANNER 10/30/2019 F32.9 Major depressive disorder, single episode, Deepthi R.Jatin, LEATHER TANNER unspecified 10/30/2019 F41.9 Anxiety disorder, unspecified Deepthi R.Jatin, LEATHER TANNER 10/30/2019 E03.9 Hypothyroidism, unspecified Deepthi R.Jatin, LEATHER TANNER 10/30/2019 I10 Essential (primary) hypertension Deepthi RTracik, LEATHER TANNER 10/30/2019 E78.5 Hyperlipidemia, unspecified Deepthi R.Jatin, LEATHER TANNER 10/30/2019 K21.9 Gastro-esophageal reflux disease without Deepthi RSanti, LEATHER TANNER esophagitis Plan of Treatment Future Appointment(s):03/18/2020 4:30 pm - Rosie Tobias M.D., FACP at [facility] Internal Medicine - [facility] Functional Status Description No Information Available Mental Status Description No Information Available Referrals Description No Information Available
[2020-02-07 12:52] LABS: Hematocrit 35 % (35-47); Hemoglobin 11.7 g/dL (12.0-16.0); Mean Corpuscular HGB Conc 33 g/dL (31-36); Mean Corpuscular Hemoglobin 29 pg (27-31); Mean Corpuscular Volume 88 fL (80-97); Mean Platelet Volume 8.8 fL (7.4-10.4); Platelet Count 263 10^3/uL (150-450); Red Blood Count 3.99 10^6 /uL (3.70-4.87); Red Cell Distribution Width 14 % (10-15); White Blood Count 6.4 10^3/uL (3.5-10.8)
[2020-02-07 12:56] LABS: ABS Basophils 0.1 10^3/ul (0-0.2); ABS Eosinophils 0.6 10^3/ul (0-0.6); ABS Lymphocytes 1.3 10^3/ul (1.0-4.8); ABS Monocytes 0.6 10^3/ul (0-0.8); ABS Neutrophils 3.8 10^3/ul (1.5-7.7); Eosinophil % 9.9 %; Lymphocyte % 20.9 %; Nucleated Red Blood Cells % 0.1
[2020-02-07] MEDS ORDERED: Vancomycin per Pharmacy* NOTE FOLLOW UP SCH (13:00)
[2020-02-07 13:01] LABS: Activated Partial Thrombo Time 36.2 seconds (26.0-38.0); INR 0.99 (0.82-1.09)
[2020-02-07 13:09] LABS: BUN/Creatinine Ratio 29.1 (8-20); Calcium 9.8 mg/dL (8.6-10.3); EGFR African American 83.7 (>60); EGFR Non-African American 69.2 (>60); Potassium 3.7 mmol/L (3.5-5.0)
--- NOTE | 2020-02-07 13:36 | ED ---
Skin Complaint - HPI Summary HPI Summary: Patient is an 84-year-old female presenting to the ED from Dr. Daly's office as a direct admit. Patient accidentally came through the ED. She states she is here for "a few days so I don't get septic." She states she has a cellulitis to her bilateral lower extremities, worse the left leg. She does however mention the cellulitis has been present times several years and had an injury to the left ankle many years ago. She states she's been on antibiotics and also states the redness is getting worse despite the antibiotics. She is unsure the name of the antibiotic and is unsure what day she started taking the antibiotics. Denies any fevers. Denies any cough or congestion. - History of Current Complaint Chief Complaint: EDExtremityLower Time Seen by Provider: 02/07/20 12:02 Stated Complaint: LEFT LEG SWELLING AND HOT Hx Obtained From: Patient Onset/Duration: Started Hours Ago Skin Exposure Onset/Duration: Worse Since: - recent Timing: Constant Onset Severity: Moderate Current Severity: Moderate Pain Intensity: 0 Pain Scale Used: 0-10 Numeric Aggravating Symptom(s): Nothing Alleviating Symptom(s): Nothing Associated Signs & Symptoms: Negative - Additional Pertinent History Primary Care Physician: [id number] - Allergy/Home Medications Allergies/Adverse Reactions: Allergies Allergy/AdvReac Type Severity Reaction Status Date / Time Penicillins Allergy Rash Verified 10/30/19 14:50 Home Medications: Home Medications Cholecalciferol TAB* [Vitamin D TAB*] 2,000 units PO DAILY 10/12/12 [History Confirmed 02/07/20] Levothyroxine TAB* [Synthroid 25 MCG TAB*] 75 mcg PO DAILY 10/12/12 [History Confirmed 02/07/20] Simvastatin [Zocor 40 MG (NF)] 40 mg PO BEDTIME 07/20/16 [History Confirmed ] Diclofenac 1% GEL (NF) [Voltaren 1% GEL (NF)] 1 gm TOPICAL QID PRN MDD 4gm 10/30 [History Confirmed 02/07/20] Gabapentin CAP(*) [Neurontin 100 mg CAP(*)] 100 mg PO TID PRN 10/30/19 [History Confirmed 02/07/20] Hydrochlorothiazide TAB* [Hydrodiuril TAB*] 25 mg PO DAILY 10/30/19 [History Confirmed 02/07/20] Paroxetine CR (NF) [Paxil Cr (NF)] 37.5 mg PO BEDTIME 10/30/19 [History Confirmed 02/07/20] Aspirin EC TAB* [Ecotrin EC Low Dose 81 MG*] 81 mg PO DAILY tab.ec 10/31/19 [ Rx Confirmed 02/07/20] Calcium Carbonate/Vitamin D3 [Calcium 600 + Vit D Tablet] 1 each PO DAILY [History Confirmed 02/07/20] Fluticasone NASAL SPRAY 50MCG* [Flonase NASAL SPRAY 50MCG*] 2 spray BOTH NARES DAILY 02/07/20 [History Confirmed 02/07/20] Magnesium Oxide TAB* [MagOx 400 TAB*] 250 mg PO BEDTIME 02/07/20 [History Confirmed 02/07/20] Ranitidine TAB (NF) [Zantac TAB (NF)] 150 mg PO DAILY 02/07/20 [History Confirmed 02/07/20] clonazePAM TAB(*) [KlonoPIN TAB(*)] 0.25 - 0.5 mg PO BID PRN MDD 2 tabs [History Confirmed 02/07/20] PMH/Surg Hx/FS Hx/Imm Hx Previously Healthy: No Endocrine/Hematology History: Reports: Hx Anticoagulant Therapy, Hx Thyroid Disease, Hx Anemia Denies: Hx Diabetes Cardiovascular History: Reports: Hx Angina, Hx Hypercholesterolemia, Hx Hypertension, Hx Peripheral Vascular Disease Denies: Hx Pacemaker/ICD Respiratory History: Reports: Hx Asthma GI History: Reports: Hx Gastroesophageal Reflux Disease, Other GI Disorders - constipation History: Denies: Hx Renal Disease Musculoskeletal History: Reports: Hx Arthritis - hips, Hx Back Problems Sensory History: Reports: Hx Cataracts - removal and lens implants placed Denies: Hx Contacts or Glasses, Hx Hearing Aid Opthamlomology History: Reports: Hx Cataracts - removal and lens implants placed Denies: Hx Contacts or Glasses Psychiatric History: Reports: Hx Anxiety Denies: Hx Panic Disorder - Surgical History Surgery Procedure, Year, and Place: Cataract surgery with lens implants. D+C after miscarriage at age 34 Hx Anesthesia Reactions: No Infectious Disease History: No Infectious Disease History: Reports: Hx Tuberculosis - At age 25, neg cxr 09/19 Denies: Traveled Outside the [place] in Last 30 Days - Family History Known Family History: Positive: Hypertension, Other - strokes - Social History Occupation: Unemployed Lives: Alone Alcohol Use: Rare Hx Substance Use: No Substance Use Type: Reports: None Hx Tobacco Use: No Smoking Status (MU): Never Smoked Tobacco Review of Systems Negative: Fever, Chills, Fatigue, Skin Diaphoresis Negative: Palpitations, Chest Pain Negative: Shortness Of Breath, Cough Positive: Edema Positive: Rash - erythematous lower ext - L worse than R Neurological/Mental Status: Negative All Other Systems Reviewed And Are Negative: Yes Physical Exam Triage Information Reviewed: Yes Vital Signs On Initial Exam: Initial Vitals Temp Pulse Resp BP Pulse Ox 97.9 F 74 16 146/82 97 02/07/20 11:54 02/07/20 11:54 02/07/20 11:54 02/07/20 11:54 02/07/20 11:54 Vital Signs Reviewed: Yes Appearance: Positive: Well-Appearing, Well-Nourished Skin: Positive: Other - lower ext erythema and warmth Head/Face: Positive: Normal Head/Face Inspection Eyes: Positive: EOMI, NAE, Conjunctiva Clear Neck: Positive: Supple, Nontender, No Lymphadenopathy Respiratory/Lung Sounds: Positive: Clear to Auscultation Cardiovascular: Positive: RRR, Pulses are Symmetrical in both Upper and Lower Extremities Musculoskeletal: Positive: Normal, Strength/ROM Intact Neurological: Positive: Speech Normal Psychiatric: Positive: Normal, Affect/Mood Appropriate AVPU Assessment: Alert Procedures - Sedation Patient Received Moderate/Deep Sedation with Procedure: No Diagnostics - Vital Signs Vital Signs Temp Pulse Resp BP Pulse Ox 02/07/20 11:54 97.9 F 74 16 146/82 97 - Laboratory Result Diagrams: 02/07/20 12:26 02/07/20 12:26 Lab Statement: Any lab studies that have been ordered have been reviewed, and results considered in the medical decision making process. Course/Dx - Course Course Of Treatment: Discussed case with JUDIE Delong who will place orders and admit for cellulitis. Patient stable. - Differential Diagnoses - Skin Complaint Differential Diagnoses: Other - Diagnoses Provider Diagnoses: Cellulitis - Physician Notifications Discussed Care Of Patient With: Juany Robertson Instructed by Provider To: Admit As Inpatient Discharge ED - Sign-Out/Discharge Documenting (check all that apply): Patient Departure All imaging exams completed and their final reports reviewed: No - Discharge Plan Condition: Fair Disposition: ADMITTED TO [facility] - Billing Disposition and Condition Condition: FAIR Disposition: Admitted to [facility]
--- NOTE | 2020-02-07 13:57 | HP ---
ADMISSION HISTORY AND PHYSICAL: DATE OF ADMISSION: 02/07/2020. CHIEF COMPLAINT: Primary diagnosis of left leg cellulitis. HISTORY OF PRESENT ILLNESS: Ms. Molina is an 84-year-old female, who has been known to me in the past for knee and ankle pain. She presented 5 days ago on for 3 days of left foot erythema and warmth. She had some mild increased pain. I did feel she was developing a cellulitis and placed her on oral Keflex. She then presented for a checkup today on 02/07/20. She had a significant increase in her erythema and warmth that had extended up her leg to mid calf. She reported some blisters with a drainage as well. She reported increased 6/10 pain in the left leg. She had been using Keflex and elevating the leg. She denied any fevers. She denied any chest pain, shortness of breath. PAST MEDICAL HISTORY: Prior heart murmur, asthma, GERD, thyroid disease, osteoarthritis, tuberculosis age 25, asthma, osteoporosis, anxiety, depression, peripheral arterial occlusive disease. PAST SURGICAL HISTORY: None. HOME MEDICATIONS: 1. Ranitidine 150 mg p.o. b.i.d. 2. Aspirin 325 mg p.o. daily. 3. Simvastatin 40 mg p.o. daily. 4. Levothyroxine 75 mcg p.o. daily. 5. Fluticasone 50 mcg 2 sprays each nostril daily. 6. Cyanocobalamin 1000 mcg/mL intramuscular q.4 weeks. 7. Voltaren gel to affected areas as needed. 8. Proventil 90 base mcg 2 puffs every 4 hours as needed. 9. Vitamin D 2000 units p.o. daily. 10. Calcium 600 plus D 200 p.o. daily. 11. Clonazepam 0.25 tablet p.o. b.i.d. for anxiety. 12. Paroxetine HCl ER 37.5 mg p.o. daily. 13. Myrbetriq 50 mg p.o. daily. 14. Gabapentin 100 mg p.o. t.i.d. ALLERGIES: PENICILLIN and ERYTHROMYCIN. FAMILY HISTORY: None. SOCIAL HISTORY: The patient is a . She lives alone. She does have her daughter in town. No tobacco, alcohol, or recreational drugs. Normally ambulates with a cane. REVIEW OF SYSTEMS: Fourteen systems reviewed with the patient today, positive for left leg pain, left leg swelling, left leg erythema, positive for some balance problems, history of heart murmur, shortness of breath with exertion, GERD, nocturia, frequent urination, depression, and anxiety. Otherwise, the patient reports review of system is negative or not relevant. PHYSICAL EXAMINATION GENERAL: The patient is thin female, in no apparent distress. Alert and oriented x2. Pleasant mood, appropriate affect. VITAL SIGNS: Height of 5 feet 4 inches tall, weight of 132 pounds, pulse 94, blood pressure 116/82, temperature 98.6. HEENT: Atraumatic normocephalic. Pupils equal and reactive to light. NECK: Trachea midline. Neck supple. No palpable lymph nodes. LUNGS: Clear to auscultation in all lung orr. No wheezes, rubs or rhonchi. HEART: S1, S2. Question of a systolic murmur. No rubs or gallops. ABDOMEN: Soft, nontender, nondistended. Bowel sounds in 4 quadrants. BILATERAL UPPER EXTREMITIES: The patient's skin is intact. No abrasions or open wounds. No palpable masses or lymph nodes. Full range of motion at the shoulder with no instability. 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 Full sensation to light touch in all nerve distributions. 2+ palpable radial pulses. No edema, varicosities or hyperreflexia. Right lower extremity: The the patient's skin is intact. No abrasions or open wounds. No palpable masses or lymph nodes. Full range of motion at the knee and ankle with no instability. No edema, varicosities or hyperreflexia. 5/5 ankle dorsiflexion, plantarflexion and strength. Full sensation to light touch in all nerve distributions and 2+ palpable DP pulse. Left lower extremity, the patient's skin has some small areas of opening with serous drainage along the left tibia. She has pitting edema up to mid calf with erythema and warmth. Range of motion at the knee is without pain. Range of motion at the ankle causes her some mild pain. 4+/5 dorsiflexion, plantar flexion strength. She reports full sensation to light touch in all nerve distributions, distally less than 3 second capillary refill. 2+ palpable DP pulse. GAIT: The patient's gait is antalgic. She is showing poor balance. She is attempting to put minimal weight on the left leg. Balance decreased single leg stance, coordination normal. ASSESSMENT AND PLAN: Ms. Molina is an 84-year-old female who presents today with worsening and left lower extremity cellulitis and pain. She has cellulitis involving the left leg that has spread from her foot over the last 5 days despite oral Keflex. The patient her daughter and I discussed that I feel she has progression of the cellulitis. She will be directly admitted to [facility] under my service. She will be placed on IV vancomycin. We will obtain blood cultures and lab work. The patient can be weightbearing as tolerated. We will place her on heparin for DVT prophylaxis. We will have her ambulate as tolerated. We will give her a regular diet. She will have q.shift nursing checks. She will elevate the leg. My hope is that within 48 to 72 hours of IV antibiotics, the cellulitis will improve significantly. We will also check the patient's blood cultures to ensure she has no evidence of sepsis. Today, she has no temperature, no tachycardia or hypotension. The patient will go directly to [facility] and be admitted to my service. We may consider infectious disease consultation at some point. Her home medications will be started. [id number]/[facility] #: [id number] SAMUEL
[2020-02-07] MEDS ORDERED: Vancomycin(*) 1,000 MG in NS 0.9% 250 ML* 250 ML IV ONE (14:00)
[2020-02-07 14:34] LABS: Erythrocyte Sed Rate 52 mm/Hr (0-29)
[2020-02-07] MEDS: Acetaminophen TAB* 325 MG PO SCH ×2 (14:46→21:20)
--- NOTE | 2020-02-07 14:47 | PN ---
Progress Note - Progress Note Date of Service: 02/07/20 SOAP: Subjective: Pt evaluated upon admission to hospital. C/o worsening pain, redness and swelling to LLE despite several days of oral antibiotics. Denies f/c. Denies dizziness/lightheadedness, CP/SOB, n/v. Has otherwise been feeling well. Denies injury, parethesias or numbness. Objective: Vital Signs: Temp Pulse Resp BP Pulse Ox 97.3 F 86 18 169/57 99 02/07/20 13:21 02/07/20 13:21 02/07/20 13:21 02/07/20 13:21 02/07/20 13:21 Gen: A&Ox3, NAD at rest sitting in bed LLE: + erythema and pitting edema up to mid calf with small areas of open skin. No ttp around knee, painless ROM to knee. +f/e at ankle with pain. N/V intact Labs: Laboratory Results - last 24 hr 02/07/20 02/07/20 02/07/20 12:26 12:26 12:37 WBC 6.4 RBC 3.99 Hgb 11.7 L Hct 35 MCV 88 MCH 29 MCHC 33 RDW 14 Plt Count 263 MPV 8.8 Neut % (Auto) 58.1 Lymph % (Auto) 20.9 [place] % (Auto) 9.8 Eos % (Auto) 9.9 Baso % (Auto) 1.3 Absolute Neuts (auto) 3.8 Absolute Lymphs (auto) 1.3 Absolute Monos (auto) 0.6 Absolute Eos (auto) 0.6 Absolute Basos (auto) 0.1 Absolute Nucleated RBC 0.0 Nucleated RBC % 0.1 ESR 52 H INR (Anticoag Therapy) 0.99 APTT 36.2 Sodium 135 Potassium 3.7 Chloride 98 L Carbon Dioxide 30 Anion Gap 7 BUN 23 Creatinine 0.79 Est GFR ( Amer) 83.7 Est GFR (Non-Af Amer) 69.2 BUN/Creatinine Ratio 29.1 H Glucose 119 H Lactic Acid Calcium 9.8 02/07/20 12:37 WBC RBC Hgb Hct MCV MCH MCHC RDW Plt Count MPV Neut % (Auto) Lymph % (Auto) [place] % (Auto) Eos % (Auto) Baso % (Auto) Absolute Neuts (auto) Absolute Lymphs (auto) Absolute Monos (auto) Absolute Eos (auto) Absolute Basos (auto) Absolute Nucleated RBC Nucleated RBC % ESR INR (Anticoag Therapy) APTT Sodium Potassium Chloride Carbon Dioxide Anion Gap BUN Creatinine Est GFR ( Amer) Est GFR (Non-Af Amer) BUN/Creatinine Ratio Glucose Lactic Acid 1.5 Calcium Assessment: LLE cellulitis that has failed oral antibiotics Plan: IV Vancomycin, elevation at rest WBAT LLE Pain medication as needed Blood cultures to r/o bacteremia
[2020-02-07 16:36] LABS: C Reactive Protein 4.39 mg/L (<8.01)
[2020-02-07] MEDS: Magnesium Hydroxide LIQ* 30 ML UDC PO SCH (21:20)
[2020-02-07] MEDS: Docusate CAP* 100 MG PO SCH (21:23)
[2020-02-07] MEDS: Heparin VIAL(*) 5000 UNITS/ML VIAL (FIVE THOUSAND) SUBCUT SCH (21:25)
[2020-02-08] MEDS: Acetaminophen TAB* 325 MG PO SCH ×3 (05:35→21:25)
[2020-02-08 06:17] LABS: ABS Basophils 0.1 10^3/ul (0-0.2); ABS Eosinophils 0.6 10^3/ul (0-0.6); ABS Lymphocytes 1.6 10^3/ul (1.0-4.8); ABS Monocytes 0.5 10^3/ul (0-0.8); ABS Neutrophils 2.4 10^3/ul (1.5-7.7); Hematocrit 31 % (35-47); Hemoglobin 10.5 g/dL (12.0-16.0); Lymphocyte % 30.9 %; Mean Corpuscular HGB Conc 34 g/dL (31-36); Mean Corpuscular Hemoglobin 30 pg (27-31); Mean Corpuscular Volume 88 fL (80-97); Nucleated Red Blood Cells % 0.1; Platelet Count 215 10^3/uL (150-450); Red Blood Count 3.53 10^6 /uL (3.70-4.87); Red Cell Distribution Width 15 % (10-15); White Blood Count 5.2 10^3/uL (3.5-10.8)
[2020-02-08 06:32] LABS: BUN/Creatinine Ratio 28.2 (8-20); C Reactive Protein 4.38 mg/L (<8.01); EGFR African American 84.9 (>60); EGFR Non-African American 70.2 (>60); Potassium 3.7 mmol/L (3.5-5.0)
[2020-02-08] MEDS: Vitamin THERAPEUTIC TAB PO SCH (08:58)
[2020-02-08] MEDS: Docusate CAP* 100 MG PO SCH ×2 (08:58→21:25)
[2020-02-08] MEDS: Magnesium Hydroxide LIQ* 30 ML UDC PO SCH ×2 (08:59→21:26)
[2020-02-08] MEDS: Heparin VIAL(*) 5000 UNITS/ML VIAL (FIVE THOUSAND) SUBCUT SCH ×2 (09:02→21:25)
--- NOTE | 2020-02-08 10:26 | PN ---
Progress Note - Progress Note Date of Service: 02/08/20 SOAP: Subjective: Pt seen this am lying in bed. Admitted due to worsening pain, redness and swelling to LLE despite several days of oral antibiotics. Denies f/c. Denies dizziness/lightheadedness, CP/SOB, n/v. Has otherwise been feeling well. Denies injury, parethesias or numbness. Objective: Vital Signs Temp 97.6 F 02/08/20 03:15 Pulse 84 02/08/20 03:15 Resp 16 02/08/20 03:15 BP 134/51 02/08/20 03:15 Pulse Ox 97 02/08/20 03:15 Intake & Output 02/07/20 02/08/20 02/08/20 18:59 06:59 18:59 Intake Total 270 300 240 Output Total 0 Balance 270 300 240 Weight 138 lb 9.6 oz Intake: IV Fluids 270 ABX - VANCOMYCIN 270 Oral 300 240 Output: Urine 0 Other: Estimated Void Small # Bowel Movements 1 Estimated Stool Amount Large # Voids 1 Gen: A&Ox3, NAD at rest sitting in bed LLE: + erythema and pitting edema up to mid calf with small areas of open skin. No ttp around knee, painless ROM to knee. +f/e at ankle with minimal pain pain. N/V intact Assessment: LLE cellulitis that has failed oral antibiotics Plan: IV Vancomycin, elevation at rest WBAT LLE Pain medication as needed Will await blood culture results
[2020-02-08] MEDS: Vancomycin(*) 1,000 MG in NS 0.9% 250 ML* 250 ML IV SCH (16:25)
[2020-02-09] MEDS: Acetaminophen TAB* 325 MG PO SCH ×3 (05:46→21:36)
[2020-02-09] MEDS: Vitamin THERAPEUTIC TAB PO SCH (09:10)
[2020-02-09] MEDS: Docusate CAP* 100 MG PO SCH ×2 (09:11→21:40)
[2020-02-09] MEDS: Magnesium Hydroxide LIQ* 30 ML UDC PO SCH ×2 (09:11→21:40)
[2020-02-09] MEDS: Heparin VIAL(*) 5000 UNITS/ML VIAL (FIVE THOUSAND) SUBCUT SCH ×2 (09:11→21:36)
--- NOTE | 2020-02-09 09:33 | PN ---
Progress Note - Progress Note Date of Service: 02/09/20 SOAP: Subjective: [Pt seen this am lying in bed. Admitted due to worsening pain, redness and swelling to LLE despite several days of oral antibiotics. She continues to have pain although states that she feels it may be improving. Denies f/c. Denies dizziness/lightheadedness, CP/SOB, n/v. Has otherwise been feeling well. Denies injury, parethesias or numbness. Objective: Vital Signs Temp 98.5 F 02/09/20 07:15 Pulse 97 02/09/20 07:15 Resp 16 02/09/20 07:32 BP 117/39 02/09/20 07:15 Pulse Ox 96 02/09/20 07:15 Intake & Output 02/08/20 02/09/20 02/09/20 18:59 06:59 18:59 Intake Total 850 0 360 Balance 850 0 360 Intake: Oral 850 0 360 Other: Estimated Void Large # Bowel Movements 1 Estimated Stool Amount Medium Large # Voids 2 1 Gen: A&Ox3, NAD at rest sitting in bed LLE: + erythema and pitting edema up to mid calf. Compared to yesterday erythema has receded slightly. No ttp around knee, painless ROM to knee. +f/e at ankle with minimal pain pain. N/V intact Assessment: LLE cellulitis that has failed oral antibiotics Plan: IV Vancomycin, elevation at rest ID to evaluate for po abx on discharge WBAT LLE PT order placed today Pain medication as needed awaiting blood culture results
[2020-02-09] MEDS: Vancomycin(*) 1,000 MG in NS 0.9% 250 ML* 250 ML IV SCH (15:08)
--- NOTE | 2020-02-09 18:00 | CONS ---
CONSULTATION REPORT: DATE OF CONSULT: 02/09/20 PRIMARY CARE PHYSICIAN: Dr. Ayesha Barros. PROVIDER REQUESTING CONSULTATION: JUDIE Adam CONSULTING SERVICE: Infectious Diseases. PROVIDER: Alina Leon NP ATTENDING PHYSICIAN: Dr. Rehan Hobbs * (dictated by Alina Leon NP). REASON FOR CONSULTATION: Left ankle cellulitis. IMPRESSION: 1. Left ankle cellulitis. The patient has not had any imaging of the ankle, but does not appear to have a septic ankle. She has full range of motion to the ankle. She reports she is able to bear weight. She does have erythema that she states has been present for at least a year with increased pain in the foot. She previously was on a 5-day course of Keflex prescribed by Orthopedics and when she did not have improvement was sent to the hospital and has been on IV vancomycin since her admission. 2. Osteoarthritis. 3. History of tuberculosis in her 20s. 4. Peripheral arterial occlusive disease. The patient had ABIs in August 2019 showing a right toe brachial indices of 0.15 and left 0.27. 5. PENICILLIN allergy caused hives. ERYTHROMYCIN, she is unclear of the side effects or reaction to this. RECOMMENDATIONS/PLAN: Recommend continuing vancomycin while she is in the hospital. If she continues to have significant pain, I would consider obtaining further imaging as she has not had any imaging recently that I see in the computer system. For discharge, recommend discharging her on doxycycline 100 mg by mouth twice daily for 14 days. She can follow up with ID outpatient and should continue to be followed closely by Orthopedics. I questioned if some of her symptoms are secondary to decreased circulation in the foot. She would benefit from a Vascular consult if she has not previously had one. HISTORY OF PRESENT ILLNESS: Ms. Molina is an 84-year-old female with past medical history significant for heart murmur, asthma, GERD, hypothyroidism, osteoarthritis, tuberculosis, osteoporosis, anxiety, depression, peripheral arterial occlusive disease, who states that a few years ago her dog ran into her left leg, this immediately caused pain and she is continued to have pain since. She reports no significant injury to the area. She has had several images of the foot over the years. In December 2018, she had a left foot x-ray showing diffuse soft tissue swelling, predominant over the dorsum of the ankle and foot, generalized about the ankle. No acute fracture or stress reaction evident. Second through fourth hammertoe deformities. She had an MRI of the left lower extremity in January 2019 showing diffuse subcutaneous edema, most marked over the dorsum of the foot including at the forefoot corresponding with the region of skin marker indicating the site of a palpable lump. No loculated soft tissue, plain fluid collection or mass lesion evident. She was followed closely with Orthopedics since the initial injury. Last year, she states that she had noticed increased pain and redness in the zimmerman on the left leg that has been pretty persistent and not really changed. She had ABIs in August 2019 showing decreased toe brachial indices. She presented to Orthopedics on with complaints of 3 days of left foot redness and warmth with increase in her pain. Orthopedics felt that she was developing cellulitis and placed her on Keflex. She returned for a followup on 02/07/20, was noted to have significant increase in the erythema, warmth, had extended up to her mid calf. She additionally had noticed some blisters that were draining and continuing to increase pain in the left leg. She had reported taking the antibiotics as directed and elevating the leg. She states that she often feels warmth on the leg, this has been ongoing for quite some time. While in the hospital, she has been on IV vancomycin, she has been afebrile, no leukocytosis, elevated ESR of 52 on admission and a normal CRP during her stay. She states that she often feels cold, but denies any fevers or chills. She has been using some lotion on the leg. She feels that it always is red and warm. Overall, she feels that the redness has receded and improving during her stay in the hospital. She denies any nausea, vomiting, diarrhea. She occasionally has left knee pain that she was told was secondary to arthritis. PAST MEDICAL HISTORY: 1. Heart murmur. 2. Asthma. 3. GERD. 4. Hypothyroidism. 5. Osteoarthritis. 6. Tuberculosis at age 22. 7. Asthma. 8. Osteoporosis. 9. Anxiety. 10. Depression. 11. Peripheral arterial occlusive disease. PAST SURGICAL HISTORY: None. MEDICATIONS: Home medications: 1. Ranitidine 150 mg by mouth daily. 2. Aspirin 325 mg by mouth daily. 3. Simvastatin 40 mg by mouth daily. 4. Levothyroxine 75 mcg by mouth daily. 5. Fluticasone 50 mcg 2 sprays to both nares. 6. Vitamin B12 1000 mcg intramuscularly every 4 weeks. 7. Voltaren gel to affected area as needed. 8. Proventil 90 mcg base 2 puffs inhalation every 4 hours as needed for shortness of breath or wheeze. 9. Vitamin D 2000 units by mouth daily. 10. Calcium 600 plus D 200 mg by mouth daily. 11. Clonazepam 0.25 mg by mouth twice daily for anxiety. 12. Paroxetine 37.5 mg mouth daily. 13. Myrbetriq 50 mg by mouth daily. 14. Gabapentin 100 mg by mouth 3 times daily. Hospital medications: 1. Vitamin D 2000 units by mouth daily. 2. Simvastatin 40 mg by mouth daily. 3. Ranitidine 150 mg by mouth daily. 4. Paxil 37.5 mg by mouth daily. 5. Magnesium oxide 250 mg by mouth daily at bedtime. 6. Levothyroxine 75 mcg by mouth daily. 7. Hydrochlorothiazide 25 mg by mouth daily. 8. Gabapentin 100 mg by mouth 3 times daily as needed for pain. 9. Flonase nasal spray 50 mcg 2 sprays to both nares daily. 10. Voltaren gel 1% apply topical 4 times daily as needed for pain. 11. Calcium 600 plus vitamin D 1 tablet mouth daily. 12. Aspirin 81 mg by mouth daily. ALLERGIES: PENICILLIN, caused hives; ERYTHROMYCIN, unknown reaction. FAMILY HISTORY: Denies family history of recurrent or resistant infections. Mother passed at age 92 after a CVA, otherwise healthy. Her father's history is unknown. SOCIAL HISTORY: She denies tobacco, alcohol or recreational drug use. REVIEW OF SYSTEMS: I performed a 10-point review of systems. All the pertinent positives and negatives as mentioned in the history of present illness , remaining review of systems are negative. PHYSICAL EXAM: Vital Signs: Temperature 98.5, heart rate 97, respiratory rate 16, O2 sat 96% on room air, blood pressure 117/39. General Appearance: Alert, appears to be in no acute distress. Head: Normocephalic, atraumatic. ENT: Extraocular movements are intact. No subconjunctival hemorrhage. Moist mucous membranes. Neck: Supple. No lymphadenopathy. Neurologic: Alert and oriented. Cranial nerves II through XII are grossly intact. Moves all extremities. Cardiovascular: Regular rate and rhythm. Respiratory: Lungs are clear to auscultation bilaterally. No accessory muscle use. Abdomen: Bowel sounds present. Abdomen is soft, nontender, nondistended. Extremities: Left lower extremity: Edema 1+ in the lower leg, ankle and foot. DP pulse 1+ and symmetric. Musculoskeletal: No clubbing or cyanosis noted. Exhibits good strength in all extremities. She has full range of motion with dorsi and plantar flexion of the left lower extremity. No tenderness with palpation of the left knee, no effusion noted. No erythema of the left knee. She has noted to have erythema to the left zimmerman with a small area of discoloration that is whitish hue. The edema is located near the ankle, this is warm to touch. Psychological: Calm and cooperative. Skin: No rashes seen. Again as previously mentioned, the patient has erythema, warmth and an area of white discoloration to the medial aspect of the left lower extremity. There is no bulla or drainage noted. DIAGNOSTIC STUDIES/LAB DATA: Sodium 138, potassium 3.7, chloride 103, CO2 of 31 , BUN 22, creatinine 0.18, glucose 133. White blood cell count 5.2, hemoglobin 10.5, hematocrit 31, and platelet count 215. CRP 4.38. ESR on admission 52. Blood cultures with no growth to date. Please see impression, recommendations outlined above, recommendations have been discussed with JUDIE Adam. Thank you for asking us to see Ms. Molina in consultation. The case has been discussed with my attending, Dr. Rehan Hobbs, who agrees with the plan of care. Reviewed by ROWAN WEBSTER 02/12/20 1710 [id number]/[facility] #: [id number] SAMUEL
[2020-02-10 05:42] LABS: ABS Eosinophils 0.8 10^3/ul (0-0.6); ABS Monocytes 0.6 10^3/ul (0-0.8); ABS Neutrophils 2.9 10^3/ul (1.5-7.7); Hematocrit 32 % (35-47); Hemoglobin 10.5 g/dL (12.0-16.0); Lymphocyte % 32.3 %; Mean Corpuscular HGB Conc 33 g/dL (31-36); Mean Corpuscular Hemoglobin 30 pg (27-31); Mean Corpuscular Volume 89 fL (80-97); Mean Platelet Volume 8.7 fL (7.4-10.4); Platelet Count 212 10^3/uL (150-450); Red Blood Count 3.54 10^6 /uL (3.70-4.87); Red Cell Distribution Width 15 % (10-15); White Blood Count 6.3 10^3/uL (3.5-10.8)
[2020-02-10] MEDS: Acetaminophen TAB* 325 MG PO SCH (05:44)
[2020-02-10] MEDS: Docusate CAP* 100 MG PO SCH (08:56)
[2020-02-10] MEDS: Magnesium Hydroxide LIQ* 30 ML UDC PO SCH (08:56)
[2020-02-10] MEDS: Heparin VIAL(*) 5000 UNITS/ML VIAL (FIVE THOUSAND) SUBCUT SCH (08:56)
[2020-02-10] MEDS: Vitamin THERAPEUTIC TAB PO SCH (08:56)
--- NOTE | 2020-02-10 08:57 | PN ---
Progress Note - Progress Note Date of Service: 02/10/20 SOAP: Subjective: Pt seen at bedside today for LLE cellulitis. States that she is doing well today. Denies pain to leg, denies f/c, n/v. Objective: Vital Signs: Temp Pulse Resp BP Pulse Ox 97.9 F 86 20 134/49 97 02/10/20 07:43 02/10/20 07:43 02/10/20 07:43 02/10/20 07:43 02/10/20 07:43 Gen: A&Ox3, NAD at rest laying in bed LLE: Erythema markedly improved from admission, swelling down as well. Leg with minimal ttp. Small abrasion to middle of erythema but no drainage. +f/e at ankle without pain. N/V intact Labs: Laboratory Results - last 24 hr 02/10/20 05:14 WBC 6.3 RBC 3.54 L Hgb 10.5 L Hct 32 L MCV 89 MCH 30 MCHC 33 RDW 15 Plt Count 212 MPV 8.7 Neut % (Auto) 46.0 Lymph % (Auto) 32.3 [place] % (Auto) 8.9 Eos % (Auto) 12.0 Baso % (Auto) 0.8 Absolute Neuts (auto) 2.9 Absolute Lymphs (auto) 2.0 Absolute Monos (auto) 0.6 Absolute Eos (auto) 0.8 H Absolute Basos (auto) 0.0 Absolute Nucleated RBC 0.0 Nucleated RBC % 0.0 Assessment: Left leg cellulitis Plan: Pt improving on IV abx, will switch to Doxycycline for 14 days as recommended by ID Encouraged elevation and rest F/u with Dr. Daly in 1 week for re-eval
--- NOTE | 2020-02-10 09:23 | DS ---
Orthopedic Discharge Summary - Discharge Summary Date of Admission:02/07/20 Date of Discharge: 02/10/20 Attending Orthopedic Provider: Susan Daly MD Admitting Diagnosis: Left leg cellulitis Disposition of Patient:Home Condition of Patient: Stable Pain medication RX at discharge: Tylenol as needed History: LUCINA FERREIRA is a 84 year old F with years of increasingly severe left leg pain, redness and swelling. She was diagnosed with cellulitis and tried a course of Keflex for 5 days. Despite this, her cellulitis worsened. Hospital Course: LUCINA was admitted to [facility] on 02/07/20 for left leg cellulitis that failed outpatient treatment. She was started on IV vancomycin and advised to elevate legs frequently. The redness and swelling improved throughout her hospital stay. She remained afebrile and was without leukocytosis. Sed rate and CRP were not elevated as well. Infectious disease service was consulted and recommended Doxycycline 100mg BID for 14 days upon discharge. On 02/10/20, the patient was found stable for discharge home. Home Medications Medication Instructions Recorded Confirmed Type Cholecalciferol TAB* [Vitamin D 2,000 units PO DAILY 10/12/12 02/07/20 History TAB*] Levothyroxine TAB* [Synthroid 25 75 mcg PO DAILY 10/12/12 02/07/20 History MCG TAB*] Simvastatin [Zocor 40 MG (NF)] 40 mg PO BEDTIME 07/20/16 02/07/20 History Diclofenac 1% GEL (NF) [Voltaren 1 gm TOPICAL QID PRN MDD 4gm 10/30/19 02/07/20 History 1% GEL (NF)] Gabapentin CAP(*) [Neurontin 100 100 mg PO TID PRN 10/30/19 02/07/20 History mg CAP(*)] Hydrochlorothiazide TAB* 25 mg PO DAILY 10/30/19 02/07/20 History [Hydrodiuril TAB*] Paroxetine CR (NF) [Paxil Cr (NF)] 37.5 mg PO BEDTIME 10/30/19 02/07/20 History Aspirin EC TAB* [Ecotrin EC Low 81 mg PO DAILY tab.ec 10/31/19 02/07/20 Rx Dose 81 MG*] Calcium Carbonate/Vitamin D3 1 each PO DAILY 02/07/20 02/07/20 History [Calcium 600 + Vit D Tablet] Fluticasone NASAL SPRAY 50MCG* 2 spray BOTH NARES DAILY 02/07/20 02/07/20 History [Flonase NASAL SPRAY 50MCG*] Magnesium Oxide TAB* [MagOx 400 250 mg PO BEDTIME 02/07/20 02/07/20 History TAB*] Ranitidine TAB (NF) [Zantac TAB 150 mg PO DAILY 02/07/20 02/07/20 History (NF)] clonazePAM TAB(*) [Klonopin TAB(*)] 0.25 - 0.5 mg PO BID PRN MDD 2 tabs 02/07/20 History Acetaminophen TAB* [Tylenol TAB*] 975 mg PO Q8HR tab 02/10/20 Rx Doxycycline Hyclate 100 mg PO BID 14 Days #28 tablet 02/10/20 Rx Discharge instructions: Weight bearing as tolerated Wash leg with soap and water Elevate leg frequently and apply ice or heat as needed Call the office with any problems or concerns at [phone] Go to the ER with fever, severe pain or increased redness Follow up with Dr. Daly in 1-2 weeks for repeat check of cellulitis. This may be set up to be a telemedicine visit if necessary
[2020-02-10 13:26] VITALS: BP 153/47
[2020-02-10] MEDS ORDERED: Vancomycin Trough Check NOTE FOLLOW UP ONE (14:30)
== END 2020-02-10 13:23 | disposition home or self-care (01) | DRG 603 ==
LOC: ED 11:53 → MEDTELE 12:16
PROVIDERS: ADMIT Internal Medicine; ATTEND Orthopaedic Surgery Adult Reconstructive Orthopaedic Surgery
DX: L03.116 Cellulitis of left lower limb (principal); J45.909 Unspecified asthma, uncomplicated; K21.9 Gastro-esophageal reflux disease without esophagitis; M19.90 Unspecified osteoarthritis, unspecified site; M81.0 Age-related osteoporosis without current pathological fracture; F41.9 Anxiety disorder, unspecified; E03.9 Hypothyroidism, unspecified; F32.9 Major depressive disorder, single episode, unspecified; I77.9 Disorder of arteries and arterioles, unspecified; R01.1 Cardiac murmur, unspecified; Z79.82 Long term (current) use of aspirin; Z79.899 Other long term (current) drug therapy; Z88.1 Allergy status to other antibiotic agents; Z88.0 Allergy status to penicillin; Z86.11 Personal history of tuberculosis; Z82.3 Family history of stroke
CPT/HCPCS: 36415; 80048; 83605; 85025; 85610; 85652; 85730; 86140; 87040; 99284; A9270-GY; J1644; J3370

== ENCOUNTER 2021-03-30 15:18 | Observation (INO) ==
[2021-03-30] MEDS ORDERED: cefTRIAXone 1 gm/50 mL NS BAG 1 GM/50 ML BAG IV ONE (17:50)
[2021-03-30] MEDS ORDERED: NS 0.9% 1000 ml BAG 1,000 ML IV ONE (17:50)
[2021-03-30 18:21] LABS: ABS Basophils 0.1 10^3/ul (0-0.2); ABS Eosinophils 1.7 10^3/ul (0-0.6); ABS Lymphocytes 1.8 10^3/ul (1.0-4.8); ABS Neutrophils 5.6 10^3/ul (1.5-7.7); Eosinophil % 16.6 %; Hematocrit 36 % (35-47); Hemoglobin 11.9 g/dL (12.0-16.0); Lymphocyte % 17.5 %; Mean Corpuscular HGB Conc 33 g/dL (31-36); Mean Corpuscular Hemoglobin 30 pg (27-31); Mean Corpuscular Volume 89 fL (80-97); Mean Platelet Volume 8.7 fL (7.4-10.4); Platelet Count 327 10^3/uL (150-450); Red Blood Count 4.03 10^6 /uL (3.70-4.87); Red Cell Distribution Width 15 % (10-15); White Blood Count 10.3 10^3/uL (3.5-10.8)
[2021-03-30 18:38] LABS: Albumin 3.5 g/dL (3.2-5.2); C Reactive Protein 19.34 mg/L (<8.01); Calcium 9.4 mg/dL (8.6-10.3); EGFR African American 99.3 (>60); Globulin 3.6 g/dL (2-4); Potassium 3.3 mmol/L (3.5-5.0); Total Bilirubin 0.3 mg/dL (0.2-1.0); Total Protein 7.1 g/dL (6.4-8.9)
[2021-03-30 20:09] LABS: Magnesium 2.1 mg/dL (1.9-2.7)
[2021-03-30] MEDS: Enoxaparin 40 MG/0.4 ML SYR SUBCUT SCH (23:01)
[2021-03-30] MEDS: Aspirin EC 81 mg TAB.EC (enteric coated) PO SCH (23:02)
[2021-03-30] MEDS: PAROXETINE PO SCH (23:22)
[2021-03-31 06:17] LABS: ABS Basophils 0.1 10^3/ul (0-0.2); ABS Eosinophils 1.1 10^3/ul (0-0.6); ABS Monocytes 0.5 10^3/ul (0-0.8); ABS Neutrophils 3.1 10^3/ul (1.5-7.7); Eosinophil % 16.1 %; Hematocrit 31 % (35-47); Hemoglobin 10.1 g/dL (12.0-16.0); Lymphocyte % 29.3 %; Mean Corpuscular HGB Conc 33 g/dL (31-36); Mean Corpuscular Hemoglobin 29 pg (27-31); Mean Corpuscular Volume 89 fL (80-97); Mean Platelet Volume 8.6 fL (7.4-10.4); Nucleated Red Blood Cells % 0.1; Platelet Count 229 10^3/uL (150-450); Red Blood Count 3.44 10^6 /uL (3.70-4.87); Red Cell Distribution Width 15 % (10-15); White Blood Count 6.8 10^3/uL (3.5-10.8)
[2021-03-31 06:42] LABS: Calcium 8.7 mg/dL (8.6-10.3); EGFR African American 99.3 (>60); Potassium 3.6 mmol/L (3.5-5.0)
[2021-03-31] MEDS: Aspirin EC 81 mg TAB.EC (enteric coated) PO SCH ×2 (09:41→22:10)
[2021-03-31 13:22] LABS: Urine Appearance Cloudy; Urine Bilirubin Negative (Negative); Urine Blood Negative (Negative); Urine Color Yellow; Urine Glucose Negative (Negative); Urine Ketones Negative (Negative); Urine Nitrite Negative (Negative); Urine Protein Negative (Negative); Urine Specific Gravity 1.015 (1.002-1.030); Urine Urobilinogen Negative (Negative)
[2021-03-31] MEDS ORDERED: cefTRIAXone 1 gm/50 mL NS BAG 1 GM/50 ML BAG IVPB SCH (18:00)
[2021-03-31] MEDS: Enoxaparin 40 MG/0.4 ML SYR SUBCUT SCH (22:11)
[2021-03-31] MEDS: PAROXETINE PO SCH (22:24)
[2021-04-01 07:31] LABS: ABS Basophils 0.1 10^3/ul (0-0.2); ABS Lymphocytes 2.1 10^3/ul (1.0-4.8); ABS Monocytes 0.6 10^3/ul (0-0.8); ABS Neutrophils 3.2 10^3/ul (1.5-7.7); Eosinophil % 14.8 %; Hematocrit 33 % (35-47); Hemoglobin 10.7 g/dL (12.0-16.0); Lymphocyte % 29.4 %; Mean Corpuscular HGB Conc 33 g/dL (31-36); Mean Corpuscular Hemoglobin 29 pg (27-31); Mean Corpuscular Volume 89 fL (80-97); Mean Platelet Volume 8.5 fL (7.4-10.4); Platelet Count 250 10^3/uL (150-450); Red Blood Count 3.65 10^6 /uL (3.70-4.87); Red Cell Distribution Width 15 % (10-15)
[2021-04-01] MEDS: Aspirin EC 81 mg TAB.EC (enteric coated) PO SCH (08:32)
[2021-04-01] MEDS ORDERED: Cyanocobalamin INJ 1,000 MCG/ML VIAL 1 ML VIAL IM SCH (14:00)
[2021-04-01 15:01] VITALS: BP 125/48
== END 2021-04-01 16:55 | disposition home or self-care (01) ==
LOC: MED 15:18 → ED 15:18
PROVIDERS: ADMIT Hospitalist; ATTEND Hospitalist

== ENCOUNTER 2021-04-30 21:56 | Inpatient (IN) ==
[2021-04-30 22:38] LABS: ABS Basophils 0.1 10^3/ul (0-0.2); ABS Eosinophils 0.9 10^3/ul (0-0.6); ABS Lymphocytes 1.7 10^3/ul (1.0-4.8); ABS Monocytes 0.8 10^3/ul (0-0.8); Eosinophil % 12.6 %; Hematocrit 35 % (35-47); Hemoglobin 11.5 g/dL (12.0-16.0); Lymphocyte % 22.7 %; Mean Corpuscular HGB Conc 33 g/dL (31-36); Mean Corpuscular Hemoglobin 30 pg (27-31); Mean Corpuscular Volume 89 fL (80-97); Mean Platelet Volume 9.1 fL (7.4-10.4); Nucleated Red Blood Cells % 0.1; Platelet Count 250 10^3/uL (150-450); Red Cell Distribution Width 15 % (10-15); White Blood Count 7.5 10^3/uL (3.5-10.8)
[2021-04-30 22:59] LABS: ALT 14 U/L (7-52); AST 16 U/L (13-39); Albumin 3.4 g/dL (3.2-5.2); Albumin/Globulin Ratio 1.1 (1-3); Alkaline Phosphatase 80 U/L (35-149); Anion Gap 5 mmol/L (2-11); Blood Urea Nitrogen 17 mg/dL (6-24); CO2 Carbon Dioxide 34 mmol/L (22-32); Chloride 100 mmol/L (101-111); EGFR African American 83.5 (>60); Globulin 3.2 g/dL (2-4); Glucose 106 mg/dL (70-100); Magnesium 1.8 mg/dL (1.9-2.7); Potassium 3.1 mmol/L (3.5-5.0); Sodium 139 mmol/L (135-145); Total Protein 6.6 g/dL (6.4-8.9)
[2021-04-30] MEDS ORDERED: Magnesium Sulfate IV 1GM/100ML 1 GM/100 ML BAG IV ONE (23:41)
[2021-04-30] MEDS ORDERED: Potassium Chlor 20 meq TAB.ER PO ONE (23:42)
[2021-05-01] MEDS: KCL 20 MEQ/100 ML IVPREMIX 20 MEQ/100 ML BAG IV SCH ×2 (00:26→03:15)
[2021-05-01] MEDS ORDERED: Nitro 2% OINT (Nitroglycerin) 1 INCH/PAK TOPICAL ONE (00:39)
[2021-05-01] MEDS ORDERED: Ondansetron 4 mg VIAL 2 MG/ML 2 ml VIAL IV PRN (00:39)
[2021-05-01] MEDS ORDERED: Heparin DRIP 25,000 UNITS BAG 25,000 UNITS/500 ML BAG IV SCH (00:45)
[2021-05-01] MEDS: Heparin 5000 UNITS/ML 1 mL VIAL IV SCH ×2 (03:15→10:52)
[2021-05-01 04:44] LABS: Free T4 0.82 ng/dL (0.61-1.12); T4, Total 11.74 mcg/dL (6.09-12.23); Total T3 113 ng/dL (87-178)
[2021-05-01 05:04] LABS: ABS Basophils 0.1 10^3/ul (0-0.2); ABS Eosinophils 1.2 10^3/ul (0-0.6); ABS Lymphocytes 2.6 10^3/ul (1.0-4.8); ABS Monocytes 0.8 10^3/ul (0-0.8); ABS Neutrophils 4.6 10^3/ul (1.5-7.7); Eosinophil % 12.5 %; Hematocrit 34 % (35-47); Hemoglobin 10.9 g/dL (12.0-16.0); Mean Corpuscular HGB Conc 32 g/dL (31-36); Mean Corpuscular Hemoglobin 29 pg (27-31); Mean Corpuscular Volume 90 fL (80-97); Mean Platelet Volume 8.8 fL (7.4-10.4); Platelet Count 235 10^3/uL (150-450); Red Blood Count 3.78 10^6 /uL (3.70-4.87); Red Cell Distribution Width 15 % (10-15); White Blood Count 9.2 10^3/uL (3.5-10.8)
[2021-05-01 05:11] LABS: Activated Partial Thrombo Time 29.3 seconds (26.0-38.0); INR 0.98 (0.82-1.09)
[2021-05-01 05:33] LABS: Anion Gap 7 mmol/L (2-11); Blood Urea Nitrogen 18 mg/dL (6-24); CO2 Carbon Dioxide 30 mmol/L (22-32); Chloride 100 mmol/L (101-111); Cholesterol 190 mg/dL; EGFR African American 94.4 (>60); EGFR Non-African American 78.1 (>60); Glucose 134 mg/dL (70-100); LDL Cholesterol 118 mg/dL; Sodium 137 mmol/L (135-145); Triglycerides 108 mg/dL
[2021-05-01] MEDS ORDERED: Albuterol HFA INHALER 8 gm MDI INH PRN (14:47)
[2021-05-02 00:52] LABS: Urine Appearance Clear; Urine Bilirubin Negative (Negative); Urine Blood Negative (Negative); Urine Color Yellow; Urine Glucose Negative (Negative); Urine Ketones Negative (Negative); Urine Nitrite Negative (Negative); Urine Protein Negative (Negative); Urine Specific Gravity 1.011 (1.002-1.030); Urine Urobilinogen Negative (Negative)
[2021-05-02 06:54] LABS: EGFR African American 92.9 (>60); EGFR Non-African American 76.8 (>60); Magnesium 1.9 mg/dL (1.9-2.7)
[2021-05-02] MEDS ORDERED: Magnesium Sulfate 2 gm BAG 2 GM/50 ML BAG IVPB ONE (07:07)
[2021-05-02] MEDS ORDERED: Regadenoson 0.4 MG/5 ML SYRINGE ONE (09:30)
[2021-05-02 11:37] VITALS: BP 108/54
== END 2021-05-02 15:56 | disposition home or self-care (01) | DRG 313 ==
LOC: ED 21:56 → MEDTELE 05-01 00:33
PROVIDERS: ADMIT Hospitalist; ATTEND Internal Medicine

== ENCOUNTER 2021-05-15 17:49 | Inpatient (IN) ==
[2021-05-15] MEDS ORDERED: Furosemide 40 mg/4 ml IV VIAL IV SLOW PU ONE (18:12)
[2021-05-15 18:56] LABS: ABS Basophils 0.1 10^3/ul (0-0.2); ABS Eosinophils 0.5 10^3/ul (0-0.6); ABS Lymphocytes 3.5 10^3/ul (1.0-4.8); ABS Monocytes 1.2 10^3/ul (0-0.8); ABS Neutrophils 12.7 10^3/ul (1.5-7.7); Eosinophil % 2.5 %; Hematocrit 40 % (35-47); Hemoglobin 12.8 g/dL (12.0-16.0); Lymphocyte % 19.5 %; Mean Corpuscular HGB Conc 33 g/dL (31-36); Mean Corpuscular Hemoglobin 29 pg (27-31); Mean Corpuscular Volume 90 fL (80-97); Mean Platelet Volume 9.2 fL (7.4-10.4); Nucleated Red Blood Cells % 0.1; Platelet Count 438 10^3/uL (150-450); Red Blood Count 4.38 10^6 /uL (3.70-4.87); Red Cell Distribution Width 15 % (10-15)
[2021-05-15 19:04] LABS: PCO2 Arterial 48 mmHg (35-45); PO2 Arterial 110 mmHg (80-100)
[2021-05-15] MEDS ORDERED: Iodixanol (CONTRAST) 320 MG/ML 100 ML SDV IV ONE (19:08)
[2021-05-15 19:12] LABS: ALT 17 U/L (7-52); AST 30 U/L (13-39); Albumin 3.4 g/dL (3.2-5.2); Albumin/Globulin Ratio 0.9 (1-3); Alkaline Phosphatase 109 U/L (35-149); Anion Gap 12 mmol/L (2-11); Blood Urea Nitrogen 33 mg/dL (6-24); CO2 Carbon Dioxide 22 mmol/L (22-32); Chloride 98 mmol/L (101-111); EGFR African American 60.1 (>60); EGFR Non-African American 49.7 (>60); Globulin 3.9 g/dL (2-4); Glucose 236 mg/dL (70-100); Potassium 3.4 mmol/L (3.5-5.0); Sodium 132 mmol/L (135-145); Total Protein 7.3 g/dL (6.4-8.9)
[2021-05-15 19:17] LABS: Troponin I 1.15 ng/mL (<0.03)
[2021-05-15] MEDS ORDERED: Cefepime 1 GM in Dextrose 1 GM/50 ML BAG IV ONE ×2 (19:48→23:45)
[2021-05-15] MEDS ORDERED: Heparin DRIP 25,000 UNITS BAG 25,000 UNITS/500 ML BAG IV SCH (20:15)
[2021-05-15] MEDS ORDERED: Lorazepam PYXIS KEY PRN (20:30)
[2021-05-15] MEDS ORDERED: LORazepam 2 mg VIAL 1 ml IV PUSH ONE (20:30)
[2021-05-15] MEDS ORDERED: nitroGLYCERIN DRIP 25,000 MCG/250 ML BTL IV SCH (21:00)
[2021-05-15 21:44] LABS: Hematocrit 39 % (35-47); Hemoglobin 12.5 g/dL (12.0-16.0); Mean Corpuscular HGB Conc 32 g/dL (31-36); Mean Corpuscular Hemoglobin 29 pg (27-31); Mean Corpuscular Volume 91 fL (80-97); Mean Platelet Volume 10.2 fL (7.4-10.4); Platelet Count 468 10^3/uL (150-450); Red Blood Count 4.29 10^6 /uL (3.70-4.87); Red Cell Distribution Width 16 % (10-15); White Blood Count 23.9 10^3/uL (3.5-10.8)
[2021-05-15 21:55] LABS: PCO2 Arterial 49 mmHg (35-45); PO2 Arterial 97 mmHg (80-100)
[2021-05-15 21:59] LABS: Blood Urea Nitrogen 35 mg/dL (6-24); EGFR African American 50.1 (>60); EGFR Non-African American 41.4 (>60)
[2021-05-15 22:06] LABS: Troponin I 2.19 ng/mL (<0.03)
[2021-05-15 22:09] LABS: Urine Appearance Clear; Urine Bilirubin Negative (Negative); Urine Blood Negative (Negative); Urine Color Yellow; Urine Glucose Negative (Negative); Urine Ketones Negative (Negative); Urine Nitrite Negative (Negative); Urine Protein Negative (Negative); Urine Specific Gravity 1.046 (1.002-1.030); Urine Urobilinogen Negative (Negative)
[2021-05-15] MEDS ORDERED: Rocuronium 50 mg VIAL 10 mg/ml 5 ml VIAL (50 mg) ONE (22:20)
[2021-05-15] MEDS ORDERED: Succinylcholine 200 mg VIAL 20 mg/ml 10 ml VIAL (200 mg) ONE (22:20)
[2021-05-15] MEDS ORDERED: Etomidate 40 mg/20 ml (2 MG/ML) 20 ml VIAL (40 mg) ONE (22:31)
[2021-05-15] MEDS: Midazolam 50 MG VIAL IV DRIP 50 ML IV SCH (22:51)
[2021-05-15] MEDS: Heparin 5000 UNITS/ML 1 mL VIAL IV SCH (22:58)
[2021-05-15 23:01] LABS: ABS Basophils 0.2 10^3/ul (0-0.2); ABS Eosinophils 0.1 10^3/ul (0-0.6); ABS Lymphocytes 2.7 10^3/ul (1.0-4.8); ABS Monocytes 0.7 10^3/ul (0-0.8); ABS Neutrophils 20.2 10^3/ul (1.5-7.7); Eosinophil % 0.5 %; Lymphocyte % 11.2 %
[2021-05-15] MEDS ORDERED: Midazolam 5 mg/ml concentrated 5 mg/ml 1 ml VIAL ONE (23:01)
[2021-05-15] MEDS ORDERED: Midazolam 10 mg/10 ml VIAL 1 mg/ml 10 ml VIAL (10 mg) ONE (23:03)
[2021-05-15] MEDS: Chlorhexidine MOUTHWASH 0.12% 15 ML UDC TOPICAL SCH (23:47)
[2021-05-16] MEDS ORDERED: fentaNYL 100 mcg/2 ml 50 MCG/ML VIAL ONE ×2 (00:48→16:05)
[2021-05-16] MEDS: fentaNYL 100 mcg/2 ml 50 MCG/ML VIAL IV SLOW PU PRN ×7 (00:51→22:30)
[2021-05-16 01:06] LABS: Troponin I 3.39 ng/mL (<0.03)
[2021-05-16 01:20] LABS: PCO2 Arterial 33 mmHg (35-45); PO2 Arterial 276 mmHg (80-100)
[2021-05-16] MEDS: KCL 20 MEQ/100 ML IVPREMIX 20 MEQ/100 ML BAG IV SCH ×3 (01:47→05:52)
[2021-05-16] MEDS: metroNIDAZOLE IV 500 MG/100ML 500 MG/100 ML BAG IVPB SCH ×2 (03:28→10:07)
[2021-05-16 04:07] LABS: Magnesium 1.5 mg/dL (1.9-2.7)
[2021-05-16] MEDS: Chlorhexidine MOUTHWASH 0.12% 15 ML UDC TOPICAL SCH ×5 (04:09→16:09)
[2021-05-16 04:16] LABS: Troponin I 13.77 ng/mL (<0.03)
[2021-05-16 05:08] LABS: ABS Lymphocytes 2.1 10^3/ul (1.0-4.8); ABS Monocytes 1.3 10^3/ul (0-0.8); ABS Neutrophils 12.4 10^3/ul (1.5-7.7); Eosinophil % 0.2 %; Hematocrit 35 % (35-47); Hemoglobin 11.7 g/dL (12.0-16.0); Mean Corpuscular HGB Conc 33 g/dL (31-36); Mean Corpuscular Hemoglobin 29 pg (27-31); Mean Corpuscular Volume 89 fL (80-97); Mean Platelet Volume 9.5 fL (7.4-10.4); Nucleated Red Blood Cells % 0.1; Platelet Count 303 10^3/uL (150-450); Red Blood Count 3.97 10^6 /uL (3.70-4.87); Red Cell Distribution Width 15 % (10-15); White Blood Count 15.8 10^3/uL (3.5-10.8)
[2021-05-16 05:16] LABS: Activated Partial Thrombo Time 92.5 seconds (26.0-38.0)
[2021-05-16 05:36] LABS: Albumin/Globulin Ratio 0.9 (1-3); Calcium 8.5 mg/dL (8.6-10.3); EGFR African American 60.1 (>60); EGFR Non-African American 49.7 (>60); Globulin 3.4 g/dL (2-4); Phosphorus 2.7 mg/dL (2.5-5.0); Total Bilirubin 0.6 mg/dL (0.2-1.0); Total Protein 6.4 g/dL (6.4-8.9)
[2021-05-16 05:40] LABS: Potassium 5.3 mmol/L (3.5-5.0)
[2021-05-16] MEDS ORDERED: Furosemide 20 mg/2 ml IV VIAL IV SLOW PU ONE (05:42)
[2021-05-16] MEDS ORDERED: Dextrose 50% Syringe 50 ml 25 GM/50 ML SYRINGE IV PUSH PRN (06:08)
[2021-05-16 08:46] LABS: Anion Gap 9 mmol/L (2-11); Blood Urea Nitrogen 35 mg/dL (6-24); CO2 Carbon Dioxide 24 mmol/L (22-32); Calcium 8.5 mg/dL (8.6-10.3); Chloride 100 mmol/L (101-111); EGFR African American 60.1 (>60); EGFR Non-African American 49.7 (>60); Glucose 190 mg/dL (70-100); Phosphorus 3.2 mg/dL (2.5-5.0); Potassium 4.2 mmol/L (3.5-5.0); Sodium 133 mmol/L (135-145)
[2021-05-16 08:51] LABS: Troponin I 40.99 ng/mL (<0.03)
[2021-05-16] MEDS ORDERED: Pantoprazole VIAL 40 MG VIAL IV SCH (09:00)
[2021-05-16 09:52] LABS: Creatine Kinase 2656 U/L (10-223)
[2021-05-16 09:59] LABS: INR 1.16 (0.86-1.15)
[2021-05-16 11:55] LABS: CKMB ng/mL > 300.0 ng/mL (0.6-6.3)
[2021-05-16] MEDS: Midazolam 50 MG VIAL IV DRIP 50 ML IV SCH (12:16)
[2021-05-16] MEDS ORDERED: Perflutren Lipid Microsphere 3 ML VIAL ONE (12:45)
[2021-05-16] MEDS ORDERED: fentaNYL 100 mcg/2 ml 50 MCG/ML VIAL IV SLOW PU ONE (16:06)
[2021-05-16] MEDS ORDERED: Morphine PCA ADULT 5 MG/ML 30 ML PCA SCH ×2 (16:15→18:00)
[2021-05-16 16:58] LABS: Troponin I 52.59 ng/mL (<0.03)
[2021-05-16] MEDS: Heparin 5000 UNITS/ML 1 mL VIAL IV SCH (17:01)
[2021-05-16 18:38] VITALS: BP 72/46
[2021-05-16] MEDS ORDERED: Lorazepam PYXIS KEY PRN (18:42)
[2021-05-16] MEDS: LORazepam 2 mg VIAL 1 ml IV PUSH PRN ×2 (19:24→22:30)
[2021-05-16] MEDS ORDERED: CEFEPIME 2 GM in Dextrose 50 mL IV SCH (21:30)
[2021-05-16] MEDS: Atropine 1% (ORAL/SL) 15 ML BTL SL PRN (21:31)
[2021-05-17] MEDS: Atropine 1% (ORAL/SL) 15 ML BTL SL PRN (02:09)
[2021-05-17] MEDS: fentaNYL 100 mcg/2 ml 50 MCG/ML VIAL IV SLOW PU PRN (03:50)
[2021-05-17] MEDS: LORazepam 2 mg VIAL 1 ml IV PUSH PRN (03:51)
== END 2021-05-17 04:03 | disposition expired ==
LOC: ED 17:49 → ICU 21:02
PROVIDERS: ADMIT Student in an Organized Health Care Education/Training Program; ATTEND Internal Medicine